=== PATIENT | female | born 1950 | race Caucasian/White ===

== ENCOUNTER 2019-11-06 07:03 | Outpatient (CLI) | payer MEDICARE, SELFPAY | END 2019-11-06 07:04 | disposition home or self-care (01) | PROVIDERS: PCP Internal Medicine; Visit Provider Internal Medicine | DX: E03.9 Hypothyroidism, unspecified (principal) | CPT/HCPCS: 36415; 84443 ==

== ENCOUNTER 2020-01-05 15:05 | Outpatient (CLI) | payer MEDICARE, SELFPAY ==
--- NOTE | ~2020-01-05 | XR_ITS ---
EXAMINATION: XR chest 2V DATE: 01/05/2020 15:38 INDICATION: Cough TECHNIQUE: PA and lateral views of the chest are obtained. COMPARISON: None available FINDINGS: The lungs are free of acute opacities. There is no pleural effusion or pneumothorax. The ca rdiomediastinal silhouette is normal. There is mild thoracic spondylosis. Surgical clips in the right upper quadrant are likely from prior cholecystectomy. IMPRESSION: 1. No acute cardiopulmonary abnormality. Reviewed, dictated and finalized at location A.
== END 2020-01-05 15:06 | disposition home or self-care (01) ==
PROVIDERS: PCP Internal Medicine; Visit Provider Internal Medicine
DX: R05 Cough (principal)
CPT/HCPCS: 71046

== ENCOUNTER 2020-02-04 08:33 | Outpatient (CLI) | payer MEDICARE, SELFPAY | END 2020-02-04 08:34 | disposition home or self-care (01) | PROVIDERS: PCP Internal Medicine; Visit Provider Internal Medicine | DX: E03.9 Hypothyroidism, unspecified (principal) | CPT/HCPCS: 36415; 84443 ==

== ENCOUNTER 2020-02-05 16:02 | Outpatient (CLI) | payer MEDICARE, SELFPAY ==
[2020-02-10 13:36] LABS: SS-A <1.0; SS-B <1.0
== END 2020-02-05 16:03 | disposition home or self-care (01) ==
PROVIDERS: PCP Internal Medicine; Visit Provider Internal Medicine
DX: R68.2 Dry mouth, unspecified (principal)
CPT/HCPCS: 36415; 86038; 86235

== ENCOUNTER 2020-03-08 15:49 | Outpatient (CLI) | payer MEDICARE, SELFPAY ==
--- NOTE | ~2020-03-08 | MM_ITS ---
EXAMINATION: MM screening mary BI w melanie HISTORY: Screening mammogram TECHNIQUE: Craniocaudal and mediolateral oblique 3-D tomosynthesis images were obtained and synthetic 2-D images were generated. CAD analysis was submitted and interpreted. COMPARISON: Comparison to multiple prior studies sequentially, with oldest reviewed study dated 11/26. BREAST PARENCHYMAL COMPOSITION: There are scattered areas of fibroglandular density. FINDINGS: Stable benign-appearing bilateral breast masses. There is no evidence of suspicious mass, c alcification, or architectural distortion to suggest malignancy in either breast. There has been no s uspicious interval change. IMPRESSION: 1. No mammographic evidence of malignancy. 2. Recommend routine screening mammography in one year. BI-RADS Category 2: Benign finding(s). Reviewed, dictated and finalized at location A.
== END 2020-03-08 15:50 | disposition home or self-care (01) ==
PROVIDERS: PCP Internal Medicine; Visit Provider Nurse Practitioner
DX: Z12.31 Encounter for screening mammogram for malignant neoplasm of breast (principal)
CPT/HCPCS: 77063; 77067

== ENCOUNTER 2020-03-17 15:23 | Outpatient (CLI) | payer MEDICARE, SELFPAY | END 2020-03-17 15:24 | disposition home or self-care (01) | LOC: ANHLAB 15:26 | PROVIDERS: PCP Internal Medicine; Visit Provider Internal Medicine | DX: E03.9 Hypothyroidism, unspecified (principal) | CPT/HCPCS: 36415; 84443 ==

== ENCOUNTER 2020-09-12 08:21 | Outpatient (CLI) | payer MEDICARE, SELFPAY ==
[2020-09-12 09:01] LABS: Hemoglobin A1C 5.2 % (<5.7)
[2020-09-12 09:04] LABS: Alanine Aminotransferase 17 U/L (4-35); Albumin Level 3.7 g/dL (3.5-5.1); Alkaline Phosphatase 82 U/L (38-126); Anion Gap 5 mmol/L (8-16); Aspartate Amino Transferase 24 U/L (14-36); Bilirubin,Total 0.7 mg/dL (0.2-1.3); Blood Urea Nitrogen 15 mg/dL (7-17); Calcium 9.1 mg/dL (8.4-10.2); Carbon Dioxide 29 mmol/L (22-30); Chloride 105 mmol/L (98-107); Estimated Glomerular Filt Rate > 60; Glucose 106 mg/dL (65-105); Potassium 3.8 mmol/L (3.4-5.0); Sodium 139 mmol/L (137-145)
[2020-09-12 09:18] LABS: Add Urine Microscopic? YES; Appearance Urine Clear (Clear); Bilirubin Urine Negative (Negative); Blood Urine Negative (Negative); Color Urine Yellow (Yellow); Glucose Urine UA Negative (Negative); Ketones Urine Negative (Negative); Leukocyte Esterase Ur Negative LEU/UL (NEGATIVE); Mucus Urine Heavy /lpf; Nitrate Urine Negative (Negative); Protein Urine Negative (Negative); RBC Urine 0-2 /hpf (0-2); Specific Grav Ur 1.019 (1.001-1.035); Squamous Epithelial Cell Urine Rare /hpf (Few); Urobilinogen Urine Negative mg/dL (<2.0); WBC Urine 0-3 /hpf (0-3)
[2020-09-13 17:11] LABS: Cholesterol 169 mg/dL (0-200); HDL Direct 48 mg/dL; Triglycerides 112 mg/dL (<150)
[2020-09-13 17:16] LABS: LDL Cholesterol Direct 81 mg/dL
== END 2020-09-12 08:22 | disposition home or self-care (01) ==
PROVIDERS: PCP Internal Medicine; Visit Provider Internal Medicine
DX: E78.5 Hyperlipidemia, unspecified (principal); I10 Essential (primary) hypertension; R73.01 Impaired fasting glucose
CPT/HCPCS: 36415; 80053; 80061; 81001; 83036; 84443

== ENCOUNTER 2021-01-23 09:12 | Outpatient (CLI) | payer MEDICARE, SELFPAY ==
[2021-01-23 10:01] LABS: CRP 0.5 mg/dL (<1.0); Uric Acid 3.8 mg/dL (2.5-7.5)
[2021-01-23 10:02] LABS: Rheumatoid Factor < 8.6 IU/ML (<12)
[2021-01-23 10:15] LABS: Erythrocyte Sedimentation Rate 28 mm/hr (0-20)
[2021-01-27 13:43] LABS: HLA B27 Negative (Negative)
== END 2021-01-23 09:13 | disposition home or self-care (01) ==
PROVIDERS: PCP Internal Medicine; Visit Provider Podiatrist Foot & Ankle Surgery
DX: M54.6 Pain in thoracic spine (principal); M13.0 Polyarthritis, unspecified; Z79.899 Other long term (current) drug therapy
CPT/HCPCS: 36415; 84550; 85652; 86038; 86140; 86430; 86812

== ENCOUNTER → 2021-03-10 10:16 | Outpatient (CLI) | payer MEDICARE, SELFPAY ==
--- NOTE | ~2021-03-10 | DEXA_ITS ---
Bone Density Report Name: Terry Bowden Age: 70 Sex: Female Ethnicity: White Date of : 1950 Indication: osteopenia; monitoring treatment; height loss; postmenopausal Referring Provider: Lesly*Stephania Rizzo Study: Bone densitometry was performed. Exam Date: March 10, 2021 Accession number: [id number] Bone Density: Region BMD T-score Z-score Classification AP Spine (L1, L2) 0.723 -2.3 -0.2 Osteopenia Femoral Neck (Left) 0.692 -1.4 0.6 Osteopenia Total Hip (Left) 0.878 -0.5 1.1 Normal Femoral Neck (Right) 0.833 -0.1 1.8 Normal Total Hip (Right) 0.886 -0.5 1.2 Normal Total Hip Mean 0.882 -0.5 1.2 Normal World Health Organization criteria for BMD impression classify patients as: Normal (T-score at or above -1.0), Osteopenia (T-score between -1.0 and -2.5), or Osteoporosis (T-score at or below -2.5). 10-year Fracture Risk: FRAX not reported because: Treated for osteoporosis Previous Exams: Region Exam Age BMD T-score BMD Change BMD Change Date g/cm2 vs Baseline vs Previous AP Spine(L1, L2) 03/10/2021 70 0.723 -2.3 -0.011 -0.008 12/24/2018 68 0.731 -2.3 -0.003 -0.021 12/02/2015 65 0.752 -2.1 0.018 0.018 11/19/2013 63 0.734 -2.2 Total Hip(Left) 03/10/2021 70 0.878 -0.5 -0.064 -0.010 12/24/2018 68 0.888 -0.4 -0.054 -0.061* 12/02/2015 65 0.949 0.1 0.007 0.007 11/19/2013 63 0.942 0.0 Total Hip(Right) 03/10/2021 70 0.886 -0.5 -0.048 0.013 12/24/2018 68 0.873 -0.6 -0.060 -0.070* 12/02/2015 65 0.944 0.0 0.010 0.010 11/19/2013 63 0.934 -0.1 *Denotes significance at 95% confidence level, LSC for AP Spine = 0.022 g/cm2, LSC for Total Hip = 0.027 g/cm2 Clinical Information Provided by Patient: Is being treated for osteoporosis Has used the following medications: Evista (i.e. raloxifene), Fosamax (i.e. alendronate), Vitamin D, Calcium, MTV Patient maximum height was 62 Menopause Age: 51 No regular weight bearing exercise Drinks caffeinated beverages Onset of menses at age 11 Number of children 1 Impression: The patient has low bone mass, based on the Total Spine T-score. No significant bone loss was observed. Discussion: PATIENT UNDER TREATMENT WITH NO SIGNIFICANT BMD LOSS SINCE LAST EXAM. In an untreated patient, BMD typical
--- NOTE | ~2021-03-10 | MM_ITS ---
EXAMINATION: MM screening mary BI w melanie HISTORY: Screening mammogram TECHNIQUE: Craniocaudal and mediolateral oblique 3-D tomosynthesis images were obtained and synthetic 2-D images were generated. CAD analysis was submitted and interpreted. COMPARISON: 03/18/2020, 12/24/2018, 12/16/2017 bilateral digital screening mammogram examinations BREAST PARENCHYMAL COMPOSITION: There are scattered areas of fibroglandular density. FINDINGS: Scattered bilateral benign calcifications. Stable occasional bilateral low-density circumsc ribed opacities. There is no evidence of suspicious mass, calcification, or architectural distortion to suggest malignancy in either breast. There has been no suspicious interval change. IMPRESSION: 1. No mammographic evidence of malignancy. 2. Recommend routine screening mammography in one year. BI-RADS Category 2: Benign finding(s). Reviewed, dictated and finalized at location A.
== END ==
PROVIDERS: PCP Internal Medicine; Visit Provider Nurse Practitioner
DX: Z12.31 Encounter for screening mammogram for malignant neoplasm of breast (principal); M81.0 Age-related osteoporosis without current pathological fracture; M85.88 Other specified disorders of bone density and structure, other site; M85.852 Other specified disorders of bone density and structure, left thigh
CPT/HCPCS: 77063; 77067; 77080

== ENCOUNTER → 2021-04-18 10:40 | Outpatient (CLI) | payer MEDICARE, SELFPAY ==
--- NOTE | ~2021-04-18 | MR_ITS ---
EXAMINATION: MR ankle LT wo con DATE: 04/18/2021 11:58 INDICATION: Left ankle pain and swelling. Posterior tibial tendinopathy. TECHNIQUE: Magnetic resonance imaging (MRI) of the left ankle was performed without intravenous contr ast. Sequences included sagittal, coronal, and axial proton-density weighted fast spin echo without a nd with fat saturation. COMPARISON: None. FINDINGS: Medial ankle ligaments: Deep and superficial deltoid ligaments as well as the spring ligament are normal. Lateral ankle ligaments: The anterior and posterior inferior tibiofibular ligaments are normal. The anterior talofibular, calc aneofibular and posterior talofibular ligaments are normal. Tendons: Achilles tendon is normal. The peroneus longus and brevis tendons are normal. The tibialis anterior a nd extensor hallucis longus and extensor digitorum longus tendons are normal. The flexor digitorum lo ngus and flexor hallucis longus tendons are normal. Mild tibialis posterior tenosynovitis with mild t ibialis posterior tendinopathy and longitudinal split tear which begins at the caudal aspect of the r etromalleolar groove and extends to the insertion at a type II os peroneus. Plantar fascia: Thickening of the proximal plantar aponeurosis with small plantar calcaneal spur at its calcaneal [place] consistent with chronic enthesopathy. No surrounding soft tissue or marrow edema to suggest acute plantar fasciitis. Bones/other: Bone alignment is normal. No fracture or pathologic marrow replacing process. There is moderate osteo arthritis at the third and fourth tarsal metatarsal joints with associated subarticular cystic change and edema. Additional mild to moderate osteoarthritis at the naviculocuneiform articulation with sma ll focus of navicular subarticular edema along its articulation with the medial cuneiform. Additional mild osteoarthritis with subarticular edema along both sides of the decreased between the medial and mid cuneiforms. Lisfranc ligament complex is normal. Fluid: Physiologic amount fluid in the joint spaces. Ganglion cyst measuring 2.3 x 1.6 x 0.8 cm arising from the talonavicular joint and extending proximally along the dorsal neck of the talus. IMPRESSION: 1. Tibialis posterior tenosynovitis with mild tendinopathy and longitudinal split tearing of the tibi cortez posterior tendon. 2. 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 Reviewed, dictated and finalized at location A. IMPRESSION: 1. Tibialis posterior tenosynovitis with mild tendinopathy and longitudinal spl it tearing of the tibialis posterior tendon. 2. 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
== END ==
PROVIDERS: PCP Internal Medicine; Visit Provider Podiatrist Foot & Ankle Surgery
DX: M76.822 Posterior tibial tendinitis, left leg (principal)
CPT/HCPCS: 73721

== ENCOUNTER 2021-05-23 15:56 | Outpatient (CLI) | payer MEDICARE, SELFPAY ==
[2021-05-23 16:57] LABS: Basophils Absolute Auto 0.1 K/mm3 (0.0-0.1); Basophils Percent Auto 0.6 % (0.2-1.2); Eosinophils Absolute Auto 0.2 K/mm3 (0-0.3); Eosinophils Percent Auto 2.4 % (0-4.4); Hematocrit 42.3 % (37.0-47.0); Hemoglobin 13.6 g/dL (12.0-15.0); Immature Granulocyte Absolute 0.01 K/mm3 (0.00-0.031); Immature Granulocyte Percent A 0.1 % (0-0.5); Lymphocytes Absolute Auto 2.18 K/mm3 (0.9-3.2); Lymphocytes Percent Auto 27.3 % (18.3-44.2); Mean Corpuscular HGB Conc 32.2 g/dl (32-36); Mean Corpuscular Hemoglobin 30.4 pg (26-34); Mean Corpuscular Volume 94.4 fl (80-100); Mean Platelet Volume 10.3 fl (7.4-10.4); Monocytes Absolute Auto 0.7 K/mm3 (0.1-0.6); Monocytes Percent Auto 8.8 % (2.6-8.5); Neutrophils Absolute Auto 4.9 K/mm3 (1.3-6.7); Neutrophils Percent Auto 60.8 % (45.5-73.1); Platelet Count Result 266 k/mm3 (150-375); Red Blood Count 4.48 M/mm3 (4.2-5.4); Red Cell Distribution Width 13.4 % (11.5-14.5)
[2021-05-23 17:08] LABS: Alanine Aminotransferase 39 U/L (4-35); Albumin Level 4.2 g/dL (3.5-5.1); Alkaline Phosphatase 96 U/L (38-126); Anion Gap 5 mmol/L (8-16); Aspartate Amino Transferase 30 U/L (14-36); Bilirubin,Total 0.8 mg/dL (0.2-1.3); Blood Urea Nitrogen 19 mg/dL (7-17); Calcium 9.1 mg/dL (8.4-10.2); Carbon Dioxide 28 mmol/L (22-30); Chloride 108 mmol/L (98-107); Creatine Kinase 52 U/L (30-135); Estimated Glomerular Filt Rate > 60; Glucose 102 mg/dL (65-110); Potassium 3.9 mmol/L (3.4-5.0); Sodium 141 mmol/L (137-145)
[2021-05-24 12:33] LABS: Erythrocyte Sedimentation Rate 24 mm/hr (0-20)
[2021-05-26 15:40] LABS: JO 1 Antibody <1.0
[2021-05-27 22:49] LABS: Aldolase 5.2 U/L (<=8.1)
== END 2021-05-23 15:57 | disposition home or self-care (01) ==
PROVIDERS: PCP Internal Medicine; Visit Provider Internal Medicine
DX: M79.603 Pain in arm, unspecified (principal); M79.643 Pain in unspecified hand
CPT/HCPCS: 36415; 80053; 82085; 82550; 85025; 85652; 86038; 86235

== ENCOUNTER 2021-06-27 09:39 | Outpatient (CLI) | payer MEDICARE, SELFPAY ==
[2021-06-27 10:16] LABS: Rheumatoid Factor < 8.6 IU/ML (<12)
== END 2021-06-27 09:40 | disposition home or self-care (01) ==
LOC: ANHLAB 09:42
PROVIDERS: PCP Internal Medicine; Visit Provider Internal Medicine
DX: M25.532 Pain in left wrist (principal); E03.9 Hypothyroidism, unspecified
CPT/HCPCS: 36415; 84443; 86430

== ENCOUNTER 2021-10-16 07:08 | Outpatient (CLI) | payer MEDICARE, SELFPAY ==
[2021-10-16 07:36] LABS: Basophils Percent Auto 0.3 % (0.2-1.2); Eosinophils Absolute Auto 0.1 K/mm3 (0-0.3); Hematocrit 41.8 % (37.0-47.0); Hemoglobin 13.7 g/dL (12.0-15.0); Immature Granulocyte Absolute 0.04 K/mm3 (0.00-0.031); Immature Granulocyte Percent A 0.4 % (0-0.5); Lymphocytes Percent Auto 25.8 % (18.3-44.2); Mean Corpuscular HGB Conc 32.8 g/dl (32-36); Mean Corpuscular Hemoglobin 31.4 pg (26-34); Mean Corpuscular Volume 95.7 fl (80-100); Mean Platelet Volume 10.3 fl (7.4-10.4); Monocytes Absolute Auto 0.9 K/mm3 (0.1-0.6); Monocytes Percent Auto 9.6 % (2.6-8.5); Neutrophils Absolute Auto 5.6 K/mm3 (1.3-6.7); Neutrophils Percent Auto 62.9 % (45.5-73.1); Platelet Count Result 247 k/mm3 (150-375); Red Blood Count 4.37 M/mm3 (4.2-5.4); Red Cell Distribution Width 13.2 % (11.5-14.5); White Blood Count 8.9 K/mm3 (4.5-10.0)
[2021-10-16 07:47] LABS: Alanine Aminotransferase 19 U/L (4-35); Albumin Level 3.9 g/dL (3.5-5.1); Alkaline Phosphatase 77 U/L (38-126); Anion Gap 7 mmol/L (8-16); Aspartate Amino Transferase 19 U/L (14-36); Bilirubin,Total 0.6 mg/dL (0.2-1.3); Blood Urea Nitrogen 19 mg/dL (7-17); Calcium 9.1 mg/dL (8.4-10.2); Carbon Dioxide 27 mmol/L (22-30); Chloride 106 mmol/L (98-107); Cholesterol 204 mg/dL (0-200); Estimated Glomerular Filt Rate > 60; Glucose 125 mg/dL (65-110); HDL Direct 57 mg/dL; Potassium 3.7 mmol/L (3.4-5.0); Sodium 140 mmol/L (137-145); Triglycerides 88 mg/dL (<150)
[2021-10-16 07:57] LABS: Hemoglobin A1C 5.7 % (<5.7)
[2021-10-16 07:58] LABS: LDL Cholesterol Direct 92 mg/dL
[2021-10-16 08:18] LABS: Add Urine Microscopic? YES; Appearance Urine Clear (Clear); Bilirubin Urine Negative (Negative); Blood Urine Negative (Negative); Color Urine Yellow (Yellow); Glucose Urine UA Negative (Negative); Ketones Urine Negative (Negative); Leukocyte Esterase Ur Negative LEU/UL (NEGATIVE); Mucus Urine Few /lpf; Nitrate Urine Negative (Negative); Protein Urine Negative (Negative); Squamous Epithelial Cell Urine Rare /hpf (Few); Urobilinogen Urine Negative mg/dL (<2.0); WBC Urine 0-3 /hpf (0-3)
== END 2021-10-16 07:09 | disposition home or self-care (01) ==
PROVIDERS: PCP Internal Medicine; Visit Provider Internal Medicine
DX: E03.9 Hypothyroidism, unspecified (principal); R73.01 Impaired fasting glucose; K55.20 Angiodysplasia of colon without hemorrhage
CPT/HCPCS: 36415; 80053; 80061; 81001; 83036; 84443; 85025

== ENCOUNTER 2021-11-30 06:59 | Outpatient (CLI) | payer MEDICARE, SELFPAY ==
[2021-11-30 07:41] LABS: Add Urine Microscopic? YES; Appearance Urine Clear (Clear); Bilirubin Urine Negative (Negative); Blood Urine Negative (Negative); Color Urine Yellow (Yellow); Glucose Urine UA Negative (Negative); Ketones Urine Negative (Negative); Leukocyte Esterase Ur Negative LEU/UL (Negative); Mucus Urine Rare /lpf; Nitrate Urine Negative (Negative); Protein Urine Negative (Negative); RBC Urine 0-2 /hpf (0-2); Specific Grav Ur 1.016 (1.001-1.035); Urobilinogen Urine Negative mg/dL (<2.0)
[2021-11-30 07:45] LABS: Alanine Aminotransferase 23 U/L (4-35); Albumin Level 3.9 g/dL (3.5-5.1); Alkaline Phosphatase 89 U/L (38-126); Anion Gap 3 mmol/L (8-16); Aspartate Amino Transferase 26 U/L (14-36); Bilirubin,Total 1.1 mg/dL (0.2-1.3); Blood Urea Nitrogen 16 mg/dL (7-17); Calcium 8.7 mg/dL (8.4-10.2); Carbon Dioxide 30 mmol/L (22-30); Chloride 107 mmol/L (98-107); Cholesterol 191 mg/dL (0-200); Estimated Glomerular Filt Rate > 60; Glucose 128 mg/dL (65-110); HDL Direct 47 mg/dL; Sodium 140 mmol/L (137-145); Triglycerides 106 mg/dL (<150)
[2021-11-30 07:57] LABS: LDL Cholesterol Direct 89 mg/dL
[2021-11-30 08:15] LABS: Thyroid Stimulating Hormone 0.282 uIU/mL (0.465-4.680)
== END 2021-11-30 07:00 | disposition home or self-care (01) ==
LOC: ANHLAB 07:05
PROVIDERS: PCP Internal Medicine; Visit Provider Internal Medicine
DX: E03.9 Hypothyroidism, unspecified (principal); R31.29 Other microscopic hematuria; E78.5 Hyperlipidemia, unspecified
CPT/HCPCS: 36415; 80053; 80061; 81001; 84443

== ENCOUNTER 2022-02-06 07:30 | Outpatient (CLI) | payer MEDICARE, SELFPAY ==
[2022-02-06 08:06] LABS: Anion Gap 6 mmol/L (8-16); Blood Urea Nitrogen 12 mg/dL (7-17); Calcium 9.1 mg/dL (8.4-10.2); Carbon Dioxide 26 mmol/L (22-30); Chloride 108 mmol/L (98-107); Estimated Glomerular Filt Rate > 60; Glucose 115 mg/dL (65-110); Potassium 3.8 mmol/L (3.4-5.0); Sodium 140 mmol/L (137-145)
[2022-02-06 08:08] LABS: Hemoglobin A1C 5.4 % (<5.7)
[2022-02-06 08:37] LABS: Thyroid Stimulating Hormone 0.044 uIU/mL (0.465-4.680)
[2022-02-10 07:54] LABS: Total Protein/Creatinine Ratio 101 mg/g creat (21-161)
[2022-02-10 14:04] LABS: Albumin 3.5 g/dL (3.8-4.8); Alpha 1 Globulin 0.3 g/dL (0.2-0.3); Alpha 2 Globulin 0.7 g/dL (0.5-0.9); Beta 1 Globulin 0.4 g/dL (0.4-0.6); Gamma Globulin 0.9 g/dL (0.8-1.7); Protein, Total 6.3 g/dL (6.1-8.1)
== END 2022-02-06 07:31 | disposition home or self-care (01) ==
LOC: ANHLAB 07:34
PROVIDERS: PCP Internal Medicine; Visit Provider Internal Medicine
DX: E03.9 Hypothyroidism, unspecified (principal); R73.01 Impaired fasting glucose; Z13.0 Encounter for screening for diseases of the blood and blood-forming organs and certain disorders involving the immune mechanism
CPT/HCPCS: 36415; 80048; 82570; 83036; 84155; 84156; 84165; 84166; 84443

== ENCOUNTER 2022-04-30 07:13 | Outpatient (CLI) | payer MEDICARE, SELFPAY ==
[2022-04-30 08:06] LABS: Alanine Aminotransferase 60 U/L (6-35); Albumin Level 3.9 g/dL (3.5-5.1); Alkaline Phosphatase 111 U/L (38-126); Anion Gap 6 mmol/L (8-16); Aspartate Amino Transferase 44 U/L (14-36); Bilirubin,Total 0.7 mg/dL (0.2-1.3); Blood Urea Nitrogen 16 mg/dL (7-17); Calcium 8.5 mg/dL (8.4-10.2); Carbon Dioxide 29 mmol/L (22-30); Chloride 106 mmol/L (98-107); Cholesterol 189 mg/dL (0-200); Estimated Glomerular Filt Rate > 60; Glucose 114 mg/dL (65-110); HDL Direct 43 mg/dL; Potassium 3.6 mmol/L (3.4-5.0); Sodium 141 mmol/L (137-145); Triglycerides 144 mg/dL (<150)
[2022-04-30 08:17] LABS: LDL Cholesterol Direct 81 mg/dL
[2022-04-30 08:35] LABS: Thyroid Stimulating Hormone 0.976 uIU/mL (0.465-4.680)
== END 2022-04-30 07:14 | disposition home or self-care (01) ==
LOC: ANHLAB 07:16
PROVIDERS: PCP Internal Medicine; Visit Provider Internal Medicine
DX: I10 Essential (primary) hypertension (principal); E03.9 Hypothyroidism, unspecified
CPT/HCPCS: 36415; 80053; 80061; 84443

== ENCOUNTER → 2022-05-17 12:10 | Outpatient (CLI) | payer MEDICARE, SELFPAY ==
--- NOTE | ~2022-05-17 | MM_ITS ---
EXAMINATION: MM screening mary BI w melanie HISTORY: Screening mammogram TECHNIQUE: Craniocaudal and mediolateral oblique 3-D tomosynthesis images were obtained and synthetic 2-D images were generated. CAD analysis was submitted and interpreted. COMPARISON: 03/10/2021, 03/08/2020, 12/24/2018 bilateral screening mammogram examinations BREAST PARENCHYMAL COMPOSITION: There are scattered areas of fibroglandular density. FINDINGS: Scattered bilateral benign calcifications. There is no evidence of suspicious mass, calcifi cation, or architectural distortion to suggest malignancy in either breast. There has been no suspici ous interval change. IMPRESSION: 1. No mammographic evidence of malignancy. 2. Recommend routine screening mammography in one year. BI-RADS Category 2: Benign finding(s). Reviewed, dictated and finalized at location A.
== END ==
PROVIDERS: PCP Internal Medicine; Visit Provider Internal Medicine
DX: Z12.31 Encounter for screening mammogram for malignant neoplasm of breast (principal)
CPT/HCPCS: 77063; 77067

== ENCOUNTER 2022-06-01 08:18 | Outpatient (CLI) | payer MEDICARE, SELFPAY ==
[2022-06-01 09:27] LABS: Alanine Aminotransferase 20 U/L (6-35); Albumin Level 3.8 g/dL (3.5-5.1); Alkaline Phosphatase 107 U/L (38-126); Aspartate Amino Transferase 30 U/L (14-36); Bilirubin,Total 0.9 mg/dL (0.2-1.3)
== END 2022-06-01 08:19 | disposition home or self-care (01) ==
PROVIDERS: PCP Internal Medicine; Visit Provider Internal Medicine
DX: E78.5 Hyperlipidemia, unspecified (principal)
CPT/HCPCS: 36415; 80076

== ENCOUNTER 2022-07-16 07:27 | Outpatient (CLI) | payer MEDICARE, SELFPAY ==
[2022-07-16 08:11] LABS: Basophils Percent Auto 0.5 % (0.2-1.2); Eosinophils Absolute Auto 0.2 K/mm3 (0-0.3); Eosinophils Percent Auto 2.7 % (0-4.4); Hematocrit 40.9 % (37.0-47.0); Hemoglobin 13.1 g/dL (12.0-15.0); Immature Granulocyte Absolute 0.02 K/mm3 (0.00-0.031); Immature Granulocyte Percent A 0.3 % (0-0.5); Lymphocytes Absolute Auto 1.71 K/mm3 (0.9-3.2); Lymphocytes Percent Auto 23.3 % (18.3-44.2); Mean Corpuscular Volume 96.9 fl (80-100); Mean Platelet Volume 10.6 fl (7.4-10.4); Monocytes Absolute Auto 0.6 K/mm3 (0.1-0.6); Monocytes Percent Auto 8.5 % (2.6-8.5); Neutrophils Absolute Auto 4.7 K/mm3 (1.3-6.7); Neutrophils Percent Auto 64.7 % (45.5-73.1); Platelet Count Result 255 k/mm3 (150-375); Red Blood Count 4.22 M/mm3 (4.2-5.4); Red Cell Distribution Width 13.6 % (11.5-14.5); White Blood Count 7.3 K/mm3 (4.5-10.0)
[2022-07-16 08:21] LABS: Alanine Aminotransferase 31 U/L (6-35); Alkaline Phosphatase 105 U/L (38-126); Anion Gap 11 mmol/L (8-16); Aspartate Amino Transferase 32 U/L (14-36); Bilirubin,Total 0.7 mg/dL (0.2-1.3); Blood Urea Nitrogen 17 mg/dL (7-17); Calcium 8.8 mg/dL (8.4-10.2); Carbon Dioxide 28 mmol/L (22-30); Chloride 103 mmol/L (98-107); Estimated Glomerular Filt Rate > 60; Glucose 127 mg/dL (65-110); Potassium 3.7 mmol/L (3.4-5.0); Sodium 142 mmol/L (137-145)
== END 2022-07-16 07:28 | disposition home or self-care (01) ==
LOC: ANHLAB 07:34
PROVIDERS: PCP Internal Medicine
DX: Z01.818 Encounter for other preprocedural examination (principal)
CPT/HCPCS: 36415; 80053; 85025

== ENCOUNTER 2022-07-20 14:49 | Outpatient (CLI) | payer MEDICARE, SELFPAY ==
[2022-07-20 15:29] LABS: Partial Thromboplastin Time 27.6 SECONDS (22.3-36.8); Prothrombin Time 13.1 Seconds (11.1-14.7)
== END 2022-07-20 14:50 | disposition home or self-care (01) ==
LOC: ANHLAB 14:50
PROVIDERS: PCP Internal Medicine; Visit Provider Internal Medicine
DX: S80.10XA Contusion of unspecified lower leg, initial encounter (principal)
CPT/HCPCS: 36415; 85610; 85730

== ENCOUNTER 2023-01-16 07:03 | Outpatient (CLI) | payer MEDICARE, SELFPAY ==
[2023-01-16 07:51] LABS: Alanine Aminotransferase 24 U/L (6-35); Alkaline Phosphatase 112 U/L (38-126); Anion Gap 6 mmol/L (8-16); Aspartate Amino Transferase 26 U/L (14-36); Blood Urea Nitrogen 17 mg/dL (7-17); Calcium 8.9 mg/dL (8.4-10.2); Carbon Dioxide 29 mmol/L (22-30); Chloride 104 mmol/L (98-107); Cholesterol 197 mg/dL (0-200); Estimated Glomerular Filt Rate > 60; Glucose 127 mg/dL (65-110); HDL Direct 43 mg/dL; Phosphorus 3.8 mg/dL (2.5-4.5); Potassium 3.8 mmol/L (3.4-5.0); Sodium 139 mmol/L (137-145); Triglycerides 113 mg/dL (<150)
[2023-01-16 07:52] LABS: Appearance Urine Clear (Clear); Bacteria Urine None Seen /hpf; Bilirubin Urine Negative (Negative); Blood Urine Negative (Negative); Color Urine Yellow (Yellow); Glucose Urine UA Negative (Negative); Ketones Urine Negative (Negative); Leukocyte Esterase Ur Negative LEU/UL (NEGATIVE); Mucus Urine Present /lpf; Need Manual Microscopic Reviewed; Nitrate Urine Negative (Negative); Protein Urine Trace mg/dL (Negative); RBC Urine 0-2 /hpf (0-2); Specific Grav Ur 1.021 (1.001-1.035); Squamous Epithelial Cell Urine None seen /hpf (Few); WBC Urine 0-5 /hpf (0-3)
[2023-01-16 07:54] LABS: Hemoglobin A1C 5.6 % (<5.7)
[2023-01-16 08:07] LABS: LDL Cholesterol Direct 98 mg/dL
[2023-01-16 08:14] LABS: Add Urine Microscopic? YES
[2023-01-16 08:20] LABS: Thyroid Stimulating Hormone 0.583 uIU/mL (0.465-4.680)
== END 2023-01-16 07:04 | disposition home or self-care (01) ==
PROVIDERS: PCP Internal Medicine; Visit Provider Internal Medicine
DX: R73.01 Impaired fasting glucose (principal); E03.9 Hypothyroidism, unspecified; I10 Essential (primary) hypertension; M85.80 Other specified disorders of bone density and structure, unspecified site
CPT/HCPCS: 36415; 80061; 80069; 80076; 81001; 82306; 83036; 84443

== ENCOUNTER 2023-03-06 07:05 | Outpatient (CLI) | payer MEDICARE, SELFPAY ==
[2023-03-06 07:42] LABS: Alanine Aminotransferase 22 U/L (6-35); Albumin Level 3.8 g/dL (3.5-5.1); Alkaline Phosphatase 103 U/L (38-126); Anion Gap 4 mmol/L (8-16); Aspartate Amino Transferase 24 U/L (14-36); Bilirubin,Total 0.7 mg/dL (0.2-1.3); Blood Urea Nitrogen 17 mg/dL (7-17); Calcium 8.7 mg/dL (8.4-10.2); Carbon Dioxide 27 mmol/L (22-30); Chloride 105 mmol/L (98-107); Cholesterol 141 mg/dL (0-200); Estimated Glomerular Filt Rate > 60; Glucose 117 mg/dL (65-110); HDL Direct 50 mg/dL; Potassium 3.8 mmol/L (3.4-5.0); Sodium 136 mmol/L (137-145); Triglycerides 84 mg/dL (<150)
[2023-03-06 07:47] LABS: Creatinine Urine 101.1 mg/dL
[2023-03-06 07:50] LABS: Microalbumin Urine Random 29.3 mg/L (0-16.7)
[2023-03-06 07:52] LABS: LDL Cholesterol Direct 60 mg/dL
== END 2023-03-06 07:06 | disposition home or self-care (01) ==
PROVIDERS: PCP Internal Medicine; Visit Provider Internal Medicine
DX: E78.5 Hyperlipidemia, unspecified (principal); I10 Essential (primary) hypertension
CPT/HCPCS: 36415; 80053; 80061; 82043

== ENCOUNTER → 2023-03-27 11:02 | Outpatient (CLI) | payer MEDICARE, SELFPAY ==
--- NOTE | ~2023-03-27 | DEXA_ITS ---
Corrected Report See Bolded Text 04/16/2023 [facility] Bone Density Report Name: RICARDO MORRIS Age: 72 Sex: Female Ethnicity: White Date of : 1950 Indication: osteopenia; height loss; Referring Provider: SAVANNA MCNEIL Study: Bone densitometry was performed. Exam Date: March 27, 2023 Accession number: [id number] Bone Density: Region BMD T-score Z-score Classification AP Spine (L1, L2) 0.768 -1.9 0.3 Osteopenia Femoral Neck (Left) 0.685 -1.5 0.6 Osteopenia Total Hip (Left) 0.810 -1.1 0.7 Osteopenia Femoral Neck (Right) 0.772 -0.7 1.4 Normal Total Hip (Right) 0.876 -0.5 1.2 Normal Total Hip Mean 0.843 -0.8 1.0 Normal World Health Organization criteria for BMD impression classify patients as: Normal (T-score at or above -1.0), Osteopenia (T-score between -1.0 and -2.5), or Osteoporosis (T-score at or below -2.5). 10-year Fracture Risk(1): Major Osteoporotic Fracture 9.8% Hip Fracture 1.8% Reported Risk Factors: [place] (), Neck BMD=0.685, BMI=37.9 (1) FRAX(R) Version 3.08. Fracture probability calculated for an untreated patient. Fracture probability may be lower if the patient has received treatment. Previous Exams: Region Exam Age BMD T-score BMD Change BMD Change Date g/cm2 vs Baseline vs Previous AP Spine(L1, L2) 03/27/2023 72 0.768 -1.9 0.034* 0.045 03/10/2021 70 0.723 -2.3 -0.011 -0.008 12/24/2018 68 0.731 -2.3 -0.003 -0.021 12/02/2015 65 0.752 -2.1 0.018 0.018 11/19/2013 63 0.734 -2.2 Total Hip(Left) 03/27/2023 72 0.810 -1.1 -0.132 -0.068 03/10/2021 70 0.878 -0.5 -0.064 -0.010 12/24/2018 68 0.888 -0.4 -0.054 -0.061* 12/02/2015 65 0.949 0.1 0.007 0.007 11/19/2013 63 0.942 0.0 Total Hip(Right) 03/27/2023 72 0.876 -0.5 -0.058 -0.010 03/10/2021 70 0.886 -0.5 -0.048 0.013 12/24/2018 68 0.873 -0.6 -0.060 -0.070* 12/02/2015 65 0.944 0.0 0.010 0.010 11/19/2013 63 0.934 -0.1 *Denotes significance at 95% confidence level, LSC for AP Spine = 0.022 g/cm2, LSC for Total Hip = 0.027 g/cm2 Clinical Information Provided by Patient: Has used the following medications: Vitamin D, Calcium, MTV Patient maximum height was 62 Menopause Age: 51 Does not regu
== END ==
PROVIDERS: PCP Internal Medicine; Visit Provider Internal Medicine
DX: M85.88 Other specified disorders of bone density and structure, other site (principal); M85.852 Other specified disorders of bone density and structure, left thigh
CPT/HCPCS: 77080

== ENCOUNTER → 2023-05-20 10:08 | Outpatient (CLI) | payer MEDICARE, SELFPAY ==
--- NOTE | ~2023-05-20 | MM_ITS ---
EXAMINATION: MM screening mary BI w melanie HISTORY: Screening mammogram TECHNIQUE: Craniocaudal and mediolateral oblique 3-D tomosynthesis images were obtained and synthetic 2-D images were generated. CAD analysis was submitted and interpreted. COMPARISON: 05/17/2022, 03/10/2021, 03/08/2020 bilateral screening mammogram examinations BREAST PARENCHYMAL COMPOSITION: There are scattered areas of fibroglandular density. FINDINGS: Scattered bilateral benign calcifications are again noted. Occasional stable low-density ci rcumscribed opacities are noted in each breast. There is no evidence of suspicious mass, calcificatio n, or architectural distortion to suggest malignancy in either breast. There has been no suspicious i nterval change. IMPRESSION: 1. No mammographic evidence of malignancy. 2. Recommend routine screening mammography in one year. BI-RADS Category 2: Benign finding(s). Reviewed, dictated and finalized at location A.
== END ==
PROVIDERS: PCP Internal Medicine; Visit Provider Internal Medicine
DX: Z12.31 Encounter for screening mammogram for malignant neoplasm of breast (principal)
CPT/HCPCS: 77063; 77067

== ENCOUNTER 2023-07-22 07:05 | Outpatient (CLI) | payer MEDICARE, SELFPAY ==
[2023-07-22 08:11] LABS: Hemoglobin A1C 5.5 % (<5.7)
[2023-07-22 08:12] LABS: Alanine Aminotransferase 24 U/L (6-35); Alkaline Phosphatase 93 U/L (38-126); Anion Gap 5 mmol/L (8-16); Aspartate Amino Transferase 25 U/L (14-36); Bilirubin,Total 0.7 mg/dL (0.2-1.3); Blood Urea Nitrogen 15 mg/dL (7-17); Calcium 9.1 mg/dL (8.4-10.2); Carbon Dioxide 29 mmol/L (22-30); Chloride 106 mmol/L (98-107); Cholesterol 167 mg/dL (0-200); Estimated Glomerular Filt Rate > 60; Glucose 111 mg/dL (65-110); HDL Direct 56 mg/dL; Potassium 3.9 mmol/L (3.4-5.0); Sodium 140 mmol/L (137-145); Triglycerides 85 mg/dL (<150)
[2023-07-22 08:23] LABS: LDL Cholesterol Direct 72 mg/dL
[2023-07-22 08:28] LABS: Vitamin D 25 Hydroxy 48.1 ng/mL
== END 2023-07-22 07:06 | disposition home or self-care (01) ==
LOC: ANHLAB 07:06
PROVIDERS: PCP Internal Medicine; Visit Provider Internal Medicine
DX: R73.01 Impaired fasting glucose (principal); E03.9 Hypothyroidism, unspecified; I10 Essential (primary) hypertension; M85.80 Other specified disorders of bone density and structure, unspecified site
CPT/HCPCS: 36415; 80053; 80061; 82306; 83036; 84443

== ENCOUNTER 2023-07-30 08:06 | Outpatient (CLI) | payer MEDICARE, SELFPAY ==
[2023-07-30 09:14] LABS: Basophils Absolute Auto 0.1 K/mm3 (0.0-0.1); Basophils Percent Auto 0.7 % (0.2-1.2); Eosinophils Absolute Auto 0.2 K/mm3 (0-0.3); Eosinophils Percent Auto 2.4 % (0-4.4); Hematocrit 40.9 % (37.0-47.0); Hemoglobin 13.3 g/dL (12.0-15.0); Immature Granulocyte Absolute 0.02 K/mm3 (0.00-0.031); Immature Granulocyte Percent A 0.3 % (0-0.5); Lymphocytes Absolute Auto 1.77 K/mm3 (0.9-3.2); Lymphocytes Percent Auto 23.6 % (18.3-44.2); Mean Corpuscular HGB Conc 32.5 g/dl (32-36); Mean Corpuscular Hemoglobin 30.9 pg (26-34); Mean Corpuscular Volume 95.1 fl (80-100); Mean Platelet Volume 10.6 fl (7.4-10.4); Monocytes Absolute Auto 0.7 K/mm3 (0.1-0.6); Monocytes Percent Auto 9.5 % (2.6-8.5); Neutrophils Absolute Auto 4.8 K/mm3 (1.3-6.7); Neutrophils Percent Auto 63.5 % (45.5-73.1); Platelet Count Result 265 k/mm3 (150-375); Red Cell Distribution Width 13.8 % (11.5-14.5); White Blood Count 7.5 K/mm3 (4.5-10.0)
[2023-07-30 10:30] LABS: Hepatitis C Virus Antibody Negative (Negative)
== END 2023-07-30 08:07 | disposition home or self-care (01) ==
LOC: ANHLAB 08:08
PROVIDERS: PCP Internal Medicine; Visit Provider Internal Medicine
DX: Z11.59 Encounter for screening for other viral diseases (principal); K55.20 Angiodysplasia of colon without hemorrhage
CPT/HCPCS: 36415; 85025; 86803

== ENCOUNTER 2024-02-28 11:18 | Outpatient (CLI) | payer MEDICARE, SELFPAY ==
[2024-02-28 11:53] LABS: Alanine Aminotransferase 17 U/L (6-35); Albumin Level 4.1 g/dL (3.5-5.1); Alkaline Phosphatase 84 U/L (38-126); Anion Gap 3 mmol/L (4-12); Aspartate Amino Transferase 27 U/L (14-36); Bilirubin,Total 0.8 mg/dL (0.2-1.3); Blood Urea Nitrogen 16 mg/dL (7-17); Calcium 8.9 mg/dL (8.4-10.2); Carbon Dioxide 27 mmol/L (22-30); Chloride 109 mmol/L (98-107); Estimated Glomerular Filt Rate > 60; Glucose 118 mg/dL (65-110); Potassium 3.9 mmol/L (3.4-5.0); Sodium 139 mmol/L (137-145)
== END 2024-02-28 11:19 | disposition home or self-care (01) ==
LOC: ANHLAB 11:21
PROVIDERS: PCP Internal Medicine; Visit Provider Internal Medicine
DX: E66.9 Obesity, unspecified (principal)
CPT/HCPCS: 36415; 80053

== ENCOUNTER 2024-06-30 07:30 | Outpatient (CLI) | payer MEDICARE, SELFPAY ==
[2024-06-30 08:29] LABS: Add Urine Microscopic? NO; Appearance Urine Clear (Clear); Bilirubin Urine Negative (Negative); Blood Urine Negative (Negative); Color Urine Yellow (Yellow); Glucose Urine UA Negative (Negative); Ketones Urine Negative (Negative); Leukocyte Esterase Ur Negative LEU/UL (Negative); Nitrate Urine Negative (Negative); Protein Urine Negative (Negative); Specific Grav Ur 1.014 (1.001-1.035)
[2024-06-30 08:50] LABS: Alanine Aminotransferase 36 U/L (6-35); Alkaline Phosphatase 90 U/L (38-126); Anion Gap 7 mmol/L (4-12); Aspartate Amino Transferase 36 U/L (14-36); Blood Urea Nitrogen 14 mg/dL (7-17); Calcium 9.4 mg/dL (8.4-10.2); Carbon Dioxide 27 mmol/L (22-30); Chloride 105 mmol/L (98-107); Cholesterol 155 mg/dL (0-200); Estimated Glomerular Filt Rate > 60; Glucose 114 mg/dL (65-110); HDL Direct 50 mg/dL; Potassium 3.6 mmol/L (3.4-5.0); Sodium 139 mmol/L (137-145); Triglycerides 126 mg/dL (<150)
[2024-06-30 09:01] LABS: LDL Cholesterol Direct 59 mg/dL
[2024-06-30 09:19] LABS: Thyroid Stimulating Hormone 0.572 uIU/mL (0.465-4.680)
[2024-06-30 10:46] LABS: Hemoglobin A1C 5.7 % (<5.7)
[2024-07-03 07:59] LABS: Reference Lab Test Name Vit D 25-OH
[2024-07-03 08:01] LABS: Reference Lab Test Result 37
== END 2024-06-30 07:31 | disposition home or self-care (01) ==
PROVIDERS: PCP Internal Medicine; Visit Provider Internal Medicine
DX: I10 Essential (primary) hypertension (principal); E03.9 Hypothyroidism, unspecified; R73.01 Impaired fasting glucose; M85.80 Other specified disorders of bone density and structure, unspecified site; E78.5 Hyperlipidemia, unspecified
CPT/HCPCS: 36415; 80053; 80061; 81003; 83036; 84443

== ENCOUNTER 2024-07-31 11:49 | Outpatient (CLI) | payer MEDICARE, SELFPAY ==
--- NOTE | ~2024-07-31 | MM_ITS ---
EXAMINATION: MM screening mary BI w melanie HISTORY: Screening mammogram, family history of breast cancer in her mother and sister. TECHNIQUE: Craniocaudal and mediolateral oblique 3-D tomosynthesis images were obtained and synthetic 2-D images were generated. CAD analysis was submitted and interpreted. COMPARISON: 05/20/2023, 05/17/2022, 03/10/2021, 03/08/2020 BREAST PARENCHYMAL COMPOSITION:Not Dense. There are scattered areas of fibroglandular density. FINDINGS: No suspicious mass, calcification, or architectural distortion are identified in either doc ast to suggest malignancy. There has been no suspicious interval change. IMPRESSION: No mammographic evidence of malignancy. Recommend routine screening mammography in one year. BI-RADS Category 1: Negative Reviewed, dictated and finalized at [facility].
== END 2024-07-31 11:50 | disposition home or self-care (01) ==
LOC: MICIMG 11:49
PROVIDERS: PCP Internal Medicine; Visit Provider Internal Medicine
DX: Z12.31 Encounter for screening mammogram for malignant neoplasm of breast (principal)
CPT/HCPCS: 77063; 77067

== ENCOUNTER 2025-03-30 13:59 | Outpatient (CLI) | payer MEDICARE, SELFPAY ==
--- NOTE | ~2025-03-30 | DEXA_ITS ---
Bone Density Report Name: RICARDO MORRIS Age: 74 Sex: Female Ethnicity: White Date of : 1950 Indication: postmenopausal; screening for osteoporosis; height loss; Referring Provider: QUINCY, NEGIN Saleem Study: Bone densitometry was performed. Exam Date: March 30, 2025 Accession number: [id number] Bone Density: Region BMD T-score Z-score Classification AP Spine(L1-L4) 0.940 -1.0 1.5 Normal Femoral Neck (Left) 0.668 -1.6 0.5 Osteopenia Total Hip (Left) 0.792 -1.2 0.7 Osteopenia Femoral Neck (Right) 0.741 -1.0 1.2 Normal Total Hip (Right) 0.856 -0.7 1.2 Normal Total Hip Mean 0.824 -1.0 1.0 Normal World Health Organization criteria for BMD impression classify patients as: Normal (T-score at or above -1.0), Osteopenia (T-score between -1.0 and -2.5), or Osteoporosis (T-score at or below -2.5). 10-year Fracture Risk(1): Major Osteoporotic Fracture 11% Hip Fracture 2.5% Reported Risk Factors: [place] (), Neck BMD=0.668, BMI=37.1 (1) FRAX(R) Version 3.08. Fracture probability calculated for an untreated patient. Fracture probability may be lower if the patient has received treatment. Clinical Information Provided by Patient: Has used the following medications: Boniva (i.e. ibandronate), Evista (i.e. raloxifene), Vitamin D Patient maximum height was 62 Menopause Age: 51 Onset of menses at age 11 Number of children 1 Impression: The patient has low bone mass, based on the Left Femoral Neck T-score. The patient has an estimated ten-year risk of hip fracture of 2.5% and an estimated ten-year risk of major fracture of 11%, based on the WHO FRAX algorithm. Discussion: BONE DENSITY IS LOW AT ONE OR MORE SKELETAL SITES. This patient's lowest T-score is low at one or more skeletal sites. It meets the World Health Organization's (WHO) criteria for ?low bone mass? (T-score between -1.0 and -2.5). The patient's 10-year risk of fracture as calculated by FRAX is less than the threshold where pharmacological therapy is recommended by the National Osteoporosis Foundation (NOF). However, all treatment decisions require clinical judgment and consideration of individual patient factors, including patient preferences, comorbidities, previous drug use, risk factors not captured in the FRAX model (e.g., frailty, falls, vitamin D deficiency, increased bone turnover, interval significant decline in bone density) and possible under or overestimation of fracture risk by FRAX. The patient should follow a healthful lifestyle (good nutrition with adequate calcium and vitamin D, and appropriate weight-bearing exercise). Follow-Up: Consider repeating this study in 2 to 3 years to reassess this patient's status, or sooner if there is some new clinical indication. Reported by: EVANS on 03/30/2025 2:38:00 PM. Reviewed, dictated and finalized at location A.
--- OUTSIDE RECORDS SUMMARY | 2025-03-30 14:03 | XMS_ITS | Patient Health Record ---
Author Organization [facility] sergio Address [address] [facility] [address] [place], [place] [address] Care Team Providers Care Cargo Mate Name Role Phone BOOGIE ASIF DMD Primary Care Provider Elissamelquiades roxanna SandersonKrish Unavailable [phone] ALLERGIES Allergen (clinical drug ingredient) Drug/Non Drug Allergy documented on EMR Reaction Allergy Type Onset Date Status penicillin eyes swell shut Drug Allergy Active Neosporin hives Drug Allergy Active REASON FOR REFERRAL No Information MEDICATIONS Medication SIG (Take, Route, Frequency, Duration) Notes Start Date End Date Status Hair, Skin, and Nails Gummies Active Ibuprofen PM Active Hydroxychloroquine 200 mg 1 tablets oral ly bid for 30 day(s) Active Artificial Tears Act nilsa levothyroxine 175 mcg (0.175 mg) 1 tab(s) orally once a day Active amlodipine besylate Active Magnesium Active zinc Active Vitamin D3 Active Vitamin C Active Calcium Active PROBLEMS Problem Type ICD Code Onset Dates Problem Status W/U Status Risk SNOMED Code Notes Problem Dry eye (H04.129) Active confirmed 232007574 Problem Hypothyroidism, unspecified type (E03.9) Active confirmed 94085985 Problem Dry mouth (R68.2) Active confirmed 07314659 Problem Oral ulcer (K12.1) Active confirmed 88941742 Problem Sjogren's syndrome with tubulo-intersti tial nephropathy (M35.04) Active confirmed [id number] PLAN OF TREATMENT Pending Test Test Name Order Date Eye exam - Plaquenil 12/14/2021 Insurance Providers Payer Name Payer Address Payer Phone Subscriber Number Group Number Insured Name Patient Relationship to Insured Coverage Start Date Coverage End Date [facility] Advantage PPO [address] [address] [place] [address] [id number] Terry Bowden Self - patient is the insured 1 MEDICARE [address] [address] [place] [address] [id number] Terry Bowden Self - patient is the insured 3 MEDICAL (GENERAL) HISTORY Medical History History ICD Code Ringing in ears thyroid disease irregular heart beat lump in breast high blood pressure gallstones Surgical History Surgery Date(Month/Year) appendectomy 1958 lumpectomy 1983 gallbladder surgery 2001 wrist surgery rt 2003 lt wrist surgery , lt knee arthroscopic surgery 2008 lt knee replacement 2008 rt knee replacement 2012 cataract surgeries 2018 lump removal 2019 fatty growth on back 2019 Hospitalization History Reason Date(Month/Year) foot issues 20,21 sleep study 2003 gave 1972
--- OUTSIDE RECORDS SUMMARY | 2025-03-30 14:03 | XMS_ITS | Encounter Summary ---
Author Organization [facility] Address [address] [place] [address] Care Team Providers Care Vegetable Grader Name Role Phone Douglas Whalen MD Unavailable [phone] Isabelle Gonzales MD Primary Care Provider [phone] Encounter Details Date Type Department Care Team (Late st Contact Info) Description 08/09/2021 Lab Requisition [facility] [address] [place] [address] Sukhdev Hermosillo MD [address] [place] [address] Social History Tobacco Use Types Packs/Day Years Used Date Smoking Tobacco: Never Smokeless Tobacco: Never Alcohol Use Standard Drinks/Week Comments No 0 (1 standard drink = 0.6 oz pur e alcohol) Comments Unknown Sex and Gender Information Value Date Recorded Sex Assigned at Female 09/06/2021 10:31 AM MEDICAL INSURANCE BILLER Legal Sex Female 1:04 PM MEDICAL INSURANCE BILLER Gender Identity Female 09/06/2021 10:31 AM MEDICAL INSURANCE BILLER Sexual Orientation Lesbian 09/06/2021 10 :31 AM MEDICAL INSURANCE BILLER documented as of this encounter Plan of Treatment Not on file documented as of this encounter Procedures Procedure Name Priority Date/Time Associated Diagnosis Comments DERMATOPATHOLOGY Routine 08/08/2021 12:0 0 AM MEDICAL INSURANCE BILLER documented in this encounter Results * DERMATOPATHOLOGY (08/08/2021 12:00 AM MEDICAL INSURANCE BILLER) Case Report Dermatopathology Report Case: [id number] Authorizing Provider: Sukhdev Hermosillo MD Collected: 08/08/2021 12:00 AM Ordering Location: [facility] Derm[facility] Lab Received: 08/09/2021 11:55 AM Pathologist: Bianka Bernstein MD Specimen: Skin, left prox ext FA 11:58 AM [facility] DERMATOPATHOLOGY [facility]OR[facility] Final Diagnosis Specimen A. SKIN, left prox ext FA: SQUAMOUS PROLIFERATION (D48.5) (see microscopic description and comment) 11:58 AM [facility] DERMATOPATHOLOGY [facility]ORATORY at [address] [facility] Clinical History R/O KA. 11:58 AM [facility] DERMATOPATHOLOGY [facility]OR[facility] Gross Description Specimen A: Received is one formalin filled container labeled with the patient's name and designated left prox ext FA. The specimen consists of a curettage and desiccation biopsy measuring [id number]. Jar 0. 11:58 AM [facility] DERMATOPATHOLOGY [facility] Microscopic Description Specimen A. SKIN, left prox ext FA: Sections show an exo- and endophytic squamous proliferation with focal maturational disarray and nuclear pleomorphism of keratinocytes. There is adjacent dermal fibrosis. There is focal parakeratosis. Additional deeper sections were obtained and reviewed. COMMENT: The histological differential diagnosis includes a keratoacanthoma-typ e squamous cell carcinoma, which is somewhat favored, and less likely a ruptured follicle or cyst. 11:58 AM [facility] DERMATOPATHOLOGY [facility]OR[facility] Disclaimer An external and internal positive and negative controls are appropriate for the histochemical, immunohistochemical and immunofluorescence stain(s) in this case (if any), except where stated explicitly. The performance characteristics of the stain(s) cited in this report were developed and its performance characteristic determined by the Dermatopathology Laboratory at [facility], directed by Dr. Fatou Barba. These tests need not be, and therefore are not, approved by the [place] Food and Drug Administration. The tests are used for clinical purposes. Billing Codes Specimen Charges Stain Charges 15761 1 11:58 AM [facility] DERMATOPATHOLOGY LABORATORY Embedded Images 11:58 AM [facility] DERMATOPATHOLOGY LABOR[facility]ORY Pathology/Cytolog y TISSUE SPECIMEN FROM SKIN / Unknown 08/08/2021 08/09/2021 11:55 AM MEDICAL INSURANCE BILLER Sukhdev Hermosillo MD LAB - PATHOLOGY/CYTOLOGY ORD ERABLES Final Result DERMATOPATHOLOGY LABORATORY [facility] - Department of Dermatology [facility] Medicine [address] [place] [address], [address] [phone] documented in this encounter Visit Diagnoses Not on filedocumented in this encounter Care Teams Vegetable Grader Relationship Specialty Start Date End Date Isabelle Gonzales [place] [address] PCP - General Internal Medicine 07/31/22 Douglas Whalen MD Orthopedic Surgery 12/28/11 documented as of this encounter
--- OUTSIDE RECORDS SUMMARY | 2025-03-30 14:03 | XMS_ITS | Clinical Summary ---
Author Organization [facility] Address [address] [place] [address] Phone Care Team Providers Care Manager Medical Name Role Phone Unavailable Primary Care Provider Unavailabl e Social History Tobacco Use Types Packs/Day Years Used Date Smoking Tobacco: Never Assessed Comments Unknown Sex and Gender Information Value Date Recorded Sex Assigned at Not on file Legal Sex Female 12:09 PM MACHINE TURNER Gender Identity Not on file Sexual Orientation Not on file Plan of Treatment Health Maintenance Due Date Last Done Comments DTAP/TDAP/TD VACCINES (1 - Tdap) 1967 PNEUMOCOCCAL VACCINE 50+ YEARS (1 of 1 - PCV) 04/04/19 98 ZOSTER VACCINE (1 of 2) 1998 OSTEOPOROSIS SCREENING 2013 RSV VACCINE (60+ or ) (1 - 1-dose 75+ series) 2023 INFLUENZA VACCINE (#1) 2024 Insurance [facility] [id number]
--- OUTSIDE RECORDS SUMMARY | 2025-03-30 14:03 | XMS_ITS | Encounter Summary ---
Author Organization [facility] Address [address] [facility] [place] [address] Care Team Providers Care Liquid Loader Name Role Phone Douglas Whalen MD Unavailable [phone] Isabelle Gonzales MD Primary Care Provider [phone] Encounter Details Date Type Department Care Team (Late st Contact Info) Description 10/23/2019 Lab Requisition [facility] Care DermPath Lab [address] [facility] [place] [address] Sukhdev Hermosillo MD [address] [place] [address] Social History Tobacco Use Types Packs/Day Years Used Date Smoking Tobacco: Never Smokeless Tobacco: Never Alcohol Use Standard Drinks/Week Comments No 0 (1 standard drink = 0.6 oz pur e alcohol) Comments Unknown Sex and Gender Information Value Date Recorded Sex Assigned at Female 09/06/2021 10:31 AM BUSINESS INTELLIGENCE DEVELOPER Legal Sex Female 1:04 PM BUSINESS INTELLIGENCE DEVELOPER Gender Identity Female 09/06/2021 10:31 AM BUSINESS INTELLIGENCE DEVELOPER Sexual Orientation Lesbian 09/06/2021 10 :31 AM BUSINESS INTELLIGENCE DEVELOPER documented as of this encounter Plan of Treatment Not on file documented as of this encounter Procedures Procedure Name Priority Date/Time Associated Diagnosis Comments DERMATOPATHOLOGY Routine 10/22/2019 12:0 0 AM BUSINESS INTELLIGENCE DEVELOPER documented in this encounter Results * DERMATOPATHOLOGY (10/22/2019 12:00 AM BUSINESS INTELLIGENCE DEVELOPER) Case Report Dermatopathology Report Case: [id number] Authorizing Provider: Sukhdev Hermosillo MD Collected: 10/22/2019 12:00 AM Ordering Location: [facility] DermPath Lab Received: 10/23/2019 07:40 AM Pathologist: Iirs Hernadez MD Specimen: Skin, dorsal left little finger MCP 0 1:41 PM [facility] DERMATOPATHOLOGY LABORATORY Final Diagnosis Specimen A. 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 0 1:41 PM [facility] DERMATOPATHOLOGY LABORATORY Gross Description Specimen A: Received is one formalin filled container labeled with the patient's name and designated dorsal left little finger MCP. The specimen consists of a shave biopsy (3 pieces) measuring [id number], 2v4t1iu, & 8d2y3vj. Jar 0. 0 1:41 PM [facility] DERMATOPATHOLOGY LABORATORY Microscopic Description Specimen A. SKIN, dorsal left little finger MCP: There are lymphocytes around blood vessels and histiocytes between collagen bundles some of which are arranged in a palisade. The collagen is focally altered. 0 1:41 PM [facility] DERMATOPATHOLOGY LABORATORY Disclaimer An external and internal positive and negative controls are appropriate for the histochemical, immunohistochemical and immunofluorescence stain(s) in this case (if any), except where stated explicitly. The performance characteristics of the stain(s) cited in this report were developed and its performance characteristic determined by the Dermatopathology Laboratory at [facility], directed by Dr. Fatou Barba. These tests need not be, and therefore are not, approved by the [place] Food and Drug Administration. The tests are used for clinical purposes. Billing Codes Specimen Charges Stain Charges 49063 1 0 1:41 PM [facility] DERMATOPATHOLOGY LABORATORY Embedded Images 0 1:41 PM [facility] DERMATOPATHOLOGY LABORATORY Pathology/Cytolog y TISSUE SPECIMEN FROM SKIN / Unknown 10/22/2019 10/23/2019 7:40 AM [facility] Sukhdev Hermosillo MD LAB - PATHOLOGY/CYTOLOGY ORD ERABLES Final Result DERMATOPATHOLOGY LABORATORY [facility] - Department of Dermatology [facility] [facility], 5th Floor Lab [address] [phone] documented in this encounter Visit Diagnoses Not on filedocumented in this encounter Care Teams Liquid Loader Relationship Specialty Start Date End Date Isabelle Gonzales MD [address] [place] [address] PCP - General Internal Medicine 07/31/22 Douglas Whalen MD Orthopedic Surgery 12/28/11 documented as of this encounter
--- OUTSIDE RECORDS SUMMARY | 2025-03-30 14:03 | XMS_ITS | Continuity of Care Document ---
Author Organization [facility] Address [address] [place] [address] Phone Care Team Providers Care Entry Level Project Coordinator Name Role Phone Smyth OD, Gerardo Unavailable Unavailable Procedures Procedure Date Eye Exam & Treatment Refraction Eye Exam & Treatment Refraction No Charge Glasses Check Progressive Lens, Polycarb No Charge Glasses Check Progressive Lens, Plastic UV Coat Miscellaneous Vision Service - Supplies Eye Exam & Treatment Refraction Eye Exam & Treatment Refraction Advance Directives Directive Yes / No Effective Date File Name No Information Encounters Encounter Description Practice Location Reason(s) For Visit Diagnoses Date Provider Providers Copied on Encounter [facility], [address] [place] [address] [address], [place], [place], [address], tel:[phone] [facility] No Information 6-201 0 Smyth OD Gerardo. [address] , [address], [place], [address], [place]. tel:[phone] [facility], [address], [place], [place], [address], [place] tel:[phone] [facility] No Information 1-200 9 Smyth OD Gerardo. [address] , [address], [place], [address], [place]. tel:[phone] [facility], [address], [place], [place], [address], [place] tel:[phone] [facility] No Information 9-200 8 Smyth OD Gerardo. [address] [facility] [address] , [address], [place], [address], [place]. tel:[phone] [facility], [address], [place], [place], [address], [place] tel:[phone] [facility] No Information 4-200 8 [facility] . [address] [facility], [address], [place], [place], [address], [place]. tel:[phone] Referring Provider: Gerardo Sparks, [address] [place] [address] [address], [place], [address]. tel:[phone] sulting Provider: Ann-Marie Garcias, [address] [place], [address]. tel:[phone] [facility], [address], [place], [place], [address], [place] tel:[phone] [facility] No Information 4-200 8 Smyth OD Gerardo. [facility] , [address], [place], [address], [place]. tel:[phone] [facility], [address], [place], [place], [address], [place] tel:[phone] [facility] No Information 7200 8 [facility] . [address] [facility], [address], [place], [place], [address], [place]. tel:[phone] Referring Provider: Gerardo Sparks, [address] [place], [place] [address], [place], [address]. tel:[phone] sulting Provider: Tito Mancilla, [address] [place], [place] [address]ate [facility], [place], [address]. tel:[phone] [facility], [address], [place], [place], [address], tel:[phone] [facility] No Information 1-200 8 Smyth OD Gerardo. [address] , [address], [place], [place], [facility], . tel:[phone] [facility], [address], [place], [place], [address], tel:[phone] [facility] No Information 4-200 7 Smyth OD Gerardo. [address] [facility] , [address], [place], [place], [facility], . tel:[phone] Family History Family Member Type Diagnosis Age At Onset No Information Payers Payer name Insurance type Covered constitution party ID Clarissa bassett(s) [employer] Plan [id number] Social History Type Description Quantity Date Captured Comments Sex Female Smoking Status No Information Chief Complaint And Reason For Visit No Information Reason For Referral Reason For Referral No Information History Of Present Illness Encounter Date Complaint History Of Prese nt Illness No Information Functional Status Date Functional Assessmen t No Information Instructions Date Instruction Additional Infor mation No Information Assessments Type Assessment Date No Information Patient Care Teams Name Effective Dates (start - stop) Status Members No Information
--- OUTSIDE RECORDS SUMMARY | 2025-03-30 14:03 | XMS_ITS | Clinical Summary ---
Author Organization [facility] [employer] Address [address] [facility] [place] [address] Care Team Providers Care Metal Ceiling Builder Name Role Phone Douglas Whalen MD Unavailable [phone] Isabelle Gonzales MD Primary Care Provider [phone] Source Comments [facility] [employer],non-owned Affiliates and Associated Physician Practices is amultiple site organization consisting of ambulatory clinics and hospital sitesin [place], [place], [place]. This disclosure is being madepursuant to the Care Everywhere program and may not contain all information available regarding this patient. Last updated 18.[facility] [employer] Allergies Active Allergy Reactions Criticality Noted Date Comments Gqewsvft-Rcxgojxdah-Essdltff n Unknown 06/05/2018 Penicillins Swelling Medium 10/29/2011 Eyes swelled shut by the end of the day Medications * Be aware that medications may not be up to date on this document. Alwaysverify current medications with the patient. amLODIPine (Norvasc) 10 MG tablet Take 1 (one) tablet by mouth once daily Active diphenhydramin e-APAP, sleep, (Tylenol PM Es) 25-500 MG tablet Take 1 (one) tablet by mouth nightly as needed Active vitamin D3 (CHOLECALCIFER OL) (25 MCG) 1000 UNIT capsule Take 1 (one) capsule by mouth once daily Active SYNTHROID 150 MCG tablet TAKE 1 TABLET BY MOUTH DAILY IN THE MORNING ON AN EMPTY STOMACH 2 Active lifitegrast (Xiidra) 5 % opthalmic solution 1 (one) drop 2 times daily Active acetaminophen (Tylenol) 500 MG tablet Take 2 (two) tablets by mouth every 8 hours as needed for Fever or Pain Maximum allowable Acetaminophen amount = 4 Grams (4000 mg) / 24 hours. 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 01/01/2012 Social History Tobacco Use Types Packs/Day Years Used Date Smoking Tobacco: Never Smokeless Tobacco: Never Tobacco Cessation:Counseling Given: Not Answered Alcohol Use Standard Drinks/Week Comments No 0 (1 standard drink = 0.6 oz pur e alcohol) Comments Unknown Sex and Gender Information Value Date Recorded Sex Assigned at Female 09/06/2021 10:31 AM ROTARY PUMP OPERATOR Legal Sex Female 1:04 PM ROTARY PUMP OPERATOR Gender Identity Female 09/06/2021 10:31 AM ROTARY PUMP OPERATOR Sexual Orientation Lesbian 09/06/2021 10 :31 AM ROTARY PUMP OPERATOR Last Filed Vital Signs Vital Sign Reading Time Taken Comments Blood Pressure 110/79 08/16/2022 9:35 AM ROTARY PUMP OPERATOR Pulse 71 08/16/2022 9:40 AM ROTARY PUMP OPERATOR Temperature 36.2 C (97.2 F) 08/16/2022 8:57 AM ROTARY PUMP OPERATOR Respiratory Rate 21 08/16/2022 9:40 AM ROTARY PUMP OPERATOR Oxygen Saturation 98% 08/16/2022 9:40 AM ROTARY PUMP OPERATOR Inhaled Oxygen Concentration - - Weight 87.5 kg (193 lb) 03/04/2023 8:39 AM CDT Height 154.9 cm (5' 1) 03/04/2023 8:39 AM CDT Body Mass Index 36.47 03/04/2023 8:39 AM CDT Plan of Treatment Health Maintenance Due Date Last Done Comments BONE DENSITY TESTING 1950 HEPATITIS C SCREENING 03/31/1966 DTAP/TDAP/TD VACCINES (1 - Tdap) 1967 PNEUMOCOCCAL VACCINE 50+ (1 of 1 - PCV) 1998 ZOSTER VACCINE (1 of 2) 1998 Respiratory Syncytial Virus (RSV) Vaccine Pt: or over 60 yrs (1 - 1-dose 75+ series) 2023 COVID-19 VACCINE (4 - 2023-2 5 season) 2024 06/24/2021, 12/03/2020, 11/05/2020 DEPRESSION SCREENING 09/30/2024 MEDICARE AWV CALENDAR YEAR 2024 INFLUENZA VACCINE (Season Ended) 2025 05/31/2021, 06/02/2020, 07/08/2017 HEPATITIS B VACCINE Aged Out No longe r eligible based on patient's age to complete this topic HIB VACCINE Aged Out No longer eligi ble based on patient's age to complete this topic HPV VACCINE Aged Out No longer eligi ble based on patient's age to complete this topic MENINGOCOCCAL (Group B) VACCINE SHARED DECISION-MAKING Aged Out No longer eligible based on patient's age to complete this topic MENINGOCOCCAL GROUPS A/C/Y/W VACCINE Aged Out No longer eligible b ased on patient's age to complete this topic Medical Devices Implanted Type Area Painter Bottom Device Identifier Shelf Expiration Date Model / Serial / Lot [place] Sut Swvlck Kntls 4.75mm Fibertape Implanted:Qty: 1 on 08/16/2022 by Talita Andino MD at [facility] Right: Shoulder [employer] 06/29/[id number] / / [id number] Insurance AET[employer] MEDICARE ADV [facility] MANAGED MEDICARE ADV Advance Directives Documents on File Type Date Recorded Patient Clerk Of Scales Expl anation Adv Directive/Living Will/POA 12/16/2011 10:10 AM Adv Directive/Living Will/POA 11/15/2011 2:38 PM * FULL RESUSCITATION (Latest Code Status on File) Date Activated Date Inactivated Comments 07/09/2012 11:09 AM 07/12/2012 12:29 PM * FULL RESUSCITATION Date Activated Date Inactivated Comments 12/12/2011 12:01 PM 12/16/2011 1:38 AM Care Teams Metal Ceiling Builder Relationship Specialty Start Date End Date Isabelle Gonzales MD [address] [place] [address] PCP - General Internal Medicine 07/31/22 Douglas Whalen MD Orthopedic Surgery 12/28/11
== END 2025-03-30 14:00 | disposition home or self-care (01) ==
LOC: ANHIMG 13:59
PROVIDERS: PCP Internal Medicine; Visit Provider Nurse Practitioner
DX: M85.89 Other specified disorders of bone density and structure, multiple sites (principal); Z13.820 Encounter for screening for osteoporosis
CPT/HCPCS: 77080

== ENCOUNTER 2025-05-03 06:13 | Emergency (ER) | payer MEDICARE, SELFPAY ==
--- NOTE | ~2025-05-03 | XR_ITS ---
XR hip RT 2V w AP pelvis 05/03/2025 06:54 Indication: Pelvic pain Procedure: AP pelvis and 2 views right hip Comparison: No prior studies for comparison. Findings: Pelvic rings intact. Sacral foramen are symmetric. No fracture, subluxation or dislocation. There is mild osteoarthritis of the hips. There is lower lumbar spondylosis. There are calcified sebastian rine fibroids. Impression: 1: No acute fracture. Reviewed, dictated and finalized at location A. Impression: 1: No acute fracture.
--- NOTE | ~2025-05-03 | CT_ITS ---
EXAMINATION: CT lumbar spine wo con DATE: 05/03/2025 07:15 INDICATION: Low back pain TECHNIQUE: Computed tomography (CT) of the lumbar spine was performed without intravenous contrast. T he dose-length product was 909.14 mGy-cm. Automated exposure control and iterative reconstruction cherri hnique were employed. COMPARISON: None FINDINGS: There is degenerative anterolisthesis at L3-4 secondary to facet hypertrophy. There is disc narrowing at L4-5 and L5-S1. No acute fracture or traumatic malalignment. There are calcified granul omas of the spleen. There is a splenic artery aneurysm measuring 1.4 cm. There is a left renal cyst. There is atherosclerosis of the aorta. Status post cholecystectomy. There is advanced multilevel unci jenni hypertrophy. There is dextroscoliosis centered at L4. There is right lateral listhesis at L4-5. There is central canal and bilateral neural foraminal narrowing at L5-S1 and L4-5 secondary to combin ation of endplate hypertrophy, disc bulging and facet hypertrophy. IMPRESSION: 1. Severe lumbar spondylosis with associated spinal stenosis at L4-5 and L5-S1. 2: Splenic artery aneurysm measuring 1.4 cm, partially calcified. Reviewed, dictated and finalized at location A.
--- OUTSIDE RECORDS SUMMARY | 2025-05-03 06:16 | XMS_ITS | Encounter Summary ---
Author Organization [facility] Address [facility] [place] [address] Care Team Providers Care Police Lieutenant Precinct Name Role Phone Mounika Hurtado BRICK WHEELER Primary Care Provider [phone] Encounter Details Date Type Department Care Team (Latest Contact Info) Description 11/13/2024 MedWhatt Message Enc [facility] [place] [address] [place], [place] [address] Mounika Hurtado, BRICK WHEELER [address] [place], [place] [address] Influenza A duration? Social History Tobacco Use Types Packs/Day Years Used Date Smoking Tobacco: Never Passive Smoke Exposure: Never Smokeless Tobacco: Never Alcohol Use Standard Drinks/Week Comments Never 0 (1 standard drink = 0.6 oz pur e alcohol) Comments No Sex and Gender Information Value Date Recorded Sex Assigned at Female 11/09/2024 9:17 AM BOARD HANDLER Legal Sex Female 6:38 PM CDT Gender Identity Female 11/09/2024 9:17 AM BOARD HANDLER Sexual Orientation Lesbian or Clar[place] 11/09/2024 9: 17 AM BOARD HANDLER documented as of this encounter Plan of Treatment Upcoming Encounters Date Type Department Care Team (Late st Contact Info) Description 06/09/2025 8:00 AM CDT [facility] [place] [address] [place], [place] [address] Mounika Hurtado, CALIN [address] [place] [address] 06/09/2025 8:30 AM CDT Office Visit [facility] [place] [address] [place] [address] Mounika Hurtado NP [address] [place] [address] documented as of this encounter Visit Diagnoses Not on filedocumented in this encounter Care Teams Police Lieutenant Precinct Relationship Specialty Start Date End Date Mounika Hurtado NP [address] [place] [address] PCP - General NURSE PRACTITIONER 08/03/24 documented as of this encounter
--- OUTSIDE RECORDS SUMMARY | 2025-05-03 06:16 | XMS_ITS | Encounter Summary ---
Author Organization [facility] Address [address] [facility] [place] [address] Care Team Providers Care Air Tube Releaser Name Role Phone Douglas Whalen MD Unavailable [phone] Isabelle Gonzales MD Primary Care Provider [phone] Encounter Details Date Type Department Care Team (Late st Contact Info) Description 08/09/2021 Lab Requisition [facility] Care DermPath Lab [address] [facility] [place] [address] Sukhdev Hermosillo MD [address] [place] [address] Social History Tobacco Use Types Packs/Day Years Used Date Smoking Tobacco: Never Smokeless Tobacco: Never Alcohol Use Standard Drinks/Week Comments No 0 (1 standard drink = 0.6 oz pur e alcohol) Comments Unknown Sex and Gender Information Value Date Recorded Sex Assigned at Female 09/06/2021 10:31 AM EMANATIONS ANALYSIS TECHNICIAN Legal Sex Female 1:04 PM EMANATIONS ANALYSIS TECHNICIAN Gender Identity Female 09/06/2021 10:31 AM EMANATIONS ANALYSIS TECHNICIAN Sexual Orientation Lesbian 09/06/2021 10 :31 AM EMANATIONS ANALYSIS TECHNICIAN documented as of this encounter Plan of Treatment Not on file documented as of this encounter Procedures Procedure Name Priority Date/Time Associated Diagnosis Comments DERMATOPATHOLOGY Routine 08/08/2021 12:0 0 AM EMANATIONS ANALYSIS TECHNICIAN documented in this encounter Results * DERMATOPATHOLOGY (08/08/2021 12:00 AM EMANATIONS ANALYSIS TECHNICIAN) Case Report Dermatopathology Report Case: [id number] Authorizing Provider: Sukhdev Hermosillo MD Collected: 08/08/2021 12:00 AM Ordering Location: [facility] DermPath Lab Received: 08/09/2021 11:55 AM Pathologist: Bianka Bernstein MD Specimen: Skin, left prox ext FA 11:58 AM [facility] DERMATOPATHOLOGY LABORATORY Final Diagnosis Specimen A. SKIN, left prox ext FA: SQUAMOUS PROLIFERATION (D48.5) (see microscopic description and comment) 11:58 AM [facility] DERMATOPATHOLOGY LABORATORY at [address] [facility] Clinical History R/O KA. 11:58 AM [facility] DERMATOPATHOLOGY LABORATORY Gross Description Specimen A: Received is one formalin filled container labeled with the patient's name and designated left prox ext FA. The specimen consists of a curettage and desiccation biopsy measuring [id number]. Jar 0. 11:58 AM [facility] DERMATOPATHOLOGY LABORATORY Microscopic Description Specimen A. SKIN, [...] a ruptured follicle or cyst. 11:58 AM [facility] DERMATOPATHOLOGY LABORATORY Disclaimer An external and internal positive and negative controls are appropriate for the histochemical, immunohistochemical and immunofluorescence stain(s) in this case (if any), except where stated explicitly. The performance characteristics of the stain(s) cited in this report were developed and its performance characteristic determined by the Dermatopathology Laboratory at [facility], directed by Dr. Fatou Barba. These tests need not be, and therefore are not, approved by the [place] Food and Drug Administration. The tests are used for clinical purposes. Billing Codes Specimen Charges Stain Charges 06966 1 11:58 AM [facility] DERMATOPATHOLOGY LABORATORY Embedded Images 11:58 AM [facility] DERMATOPATHOLOGY LABORATORY Pathology/Cytolog y TISSUE SPECIMEN FROM SKIN / Unknown 08/08/2021 08/09/2021 11:55 AM EMANATIONS ANALYSIS TECHNICIAN Sukhdev Hermosillo MD LAB - PATHOLOGY/CYTOLOGY ORD ERABLES Final Result DERMATOPATHOLOGY LABORATORY [facility] - Department of Dermatology [facility] Medicine [address] [place] [address], [address] [phone] documented in this encounter Visit Diagnoses Not on filedocumented in this encounter Care Teams Air Tube Releaser Relationship Specialty Start Date End Date Isabelle Gonzales [place] [address] [address] PCP - General Internal Medicine 07/31/22 Douglas Whalen MD Orthopedic Surgery 12/28/11 documented as of this encounter
--- OUTSIDE RECORDS SUMMARY | 2025-05-03 06:16 | XMS_ITS | Encounter Summary ---
Author Organization [facility] Address [facility] [place] [address] Care Team Providers Care Manager Process Name Role Phone Mounika Hurtado SOFTWARE TEST AUTOMATION ENGINEER Primary Care Provider [phone] Encounter Details Date Type Department Care Team (Late st Contact Info) Description 02/23/2025 MyChart Message Enc [facility] Medical [facility] Multispecialty Care [place] [address] [place] [address] Mounika Hurtado NP [address] [place] [address] Another thing Social History Tobacco Use Types Packs/Day Years Used Date Smoking Tobacco: Never Passive Smoke Exposure: Never Smokeless Tobacco: Never Alcohol Use Standard Drinks/Week Comments Never 0 (1 standard drink = 0.6 oz pur e alcohol) PHQ-2 Answer Date Recorded Patient Health Questionnaire-2 Score 0 01/28/2025 Comments No Sex and Gender Information Value Date Recorded Sex Assigned at Female 11/09/2024 9:17 AM HYDRO STATION OPERATOR Legal Sex Female 6:38 PM CDT Gender Identity Female 11/09/2024 9:17 AM HYDRO STATION OPERATOR Sexual Orientation Lesbian or Claros 11/09/2024 9: 17 AM HYDRO STATION OPERATOR documented as of this encounter Plan of Treatment Upcoming Encounters Date Type Department Care Team (Late st Contact Info) Description 06/09/2025 8:00 AM CDT Office Visit [facility] Medical [facility] Mult[facility]ialty Care [place] [address] [place] [address] Mounika Hurtado NP [address] [place] [address] 06/09/2025 8:30 AM CDT Office Visit [facility] Medical Group Multispecialty Care [place] [address] [place] [address] Mounika Hurtado NP [address] [facility] [address] [place] [address] documented as of this encounter Visit Diagnoses Not on filedocumented in this encounter Care Teams Manager Process Relationship Specialty Start Date End Date Mounika Hurtado NP [address] [facility] [address] [place] [address] PCP - General NURSE PRACTITIONER 08/03/24 documented as of this encounter
--- OUTSIDE RECORDS SUMMARY | 2025-05-03 06:16 | XMS_ITS | Encounter Summary ---
Author Organization [facility] Address [address] [facility] [place] [address] Care Team Providers Care Or First Assist Registered Nurse Name Role Phone Douglas Whalen MD Unavailable [phone] Isabelle Gonzales MD Primary Care Provider [phone] Encounter Details Date Type Department Care Team (Late st Contact Info) Description 10/23/2019 Lab Requisition [facility] Care [facility] Lab [address] [facility] [place] [address] Sukhdev Hermosillo MD [address] [place] [address] Social History Tobacco Use Types Packs/Day Years Used Date Smoking Tobacco: Never Smokeless Tobacco: Never Alcohol Use Standard Drinks/Week Comments No 0 (1 standard drink = 0.6 oz pur e alcohol) Comments Unknown Sex and Gender Information Value Date Recorded Sex Assigned at Female 09/06/2021 10:31 AM INSURANCE AND BENEFITS CLERK Legal Sex Female 1:04 PM INSURANCE AND BENEFITS CLERK Gender Identity Female 09/06/2021 10:31 AM INSURANCE AND BENEFITS CLERK Sexual Orientation Lesbian 09/06/2021 10 :31 AM INSURANCE AND BENEFITS CLERK documented as of this encounter Plan of Treatment Not on file documented as of this encounter Procedures Procedure Name Priority Date/Time Associated Diagnosis Comments DERMATOPATHOLOGY Routine 10/22/2019 12:0 0 AM INSURANCE AND BENEFITS CLERK documented in this encounter Results * DERMATOPATHOLOGY (10/22/2019 12:00 AM INSURANCE AND BENEFITS CLERK) Case Report Dermatopathology Report Case: [id number] Authorizing Provider: Sukhdev Hermosillo MD Collected: 10/22/2019 12:00 AM Ordering Location: [facility] D[facility] Lab Received: 10/23/2019 07:40 AM Pathologist: Iris Hernadez MD Specimen: Skin, dorsal left little finger MCP 0 1:41 PM [facility]ERMAT[facility] Final Diagnosis Specimen A. 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 0 1:41 PM [facility] Gross Description Specimen A: Received is one formalin filled container labeled with the patient's name and designated dorsal left little finger MCP. The specimen consists of a shave biopsy (3 pieces) measuring [id number], [id number], & [id number]. Jar 0. 0 1:41 PM [facility] Microscopic Description Specimen A. SKIN, dorsal left little finger MCP: There are lymphocytes around blood vessels and histiocytes between collagen bundles some of which are arranged in a palisade. The collagen is focally altered. 0 1:41 PM [facility]ERMAT[facility] Disclaimer An external and internal positive and negative controls are appropriate for the histochemical, immunohistochemical and immunofluorescence stain(s) in this case (if any), except where stated explicitly. The performance characteristics of the stain(s) cited in this report were developed and its performance characteristic determined by the Dermatopathology Laboratory at [facility], directed by Dr. Fatou Barba. These tests need not be, and therefore are not, approved by the [place] Food and Drug Administration. The tests are used for clinical purposes. Billing Codes Specimen Charges Stain Charges 91920 1 0 1:41 PM [facility] Embedded Images 0 1:41 PM [facility] Pathology/Cytolog y TISSUE SPECIMEN FROM SKIN / Unknown 10/22/2019 10/23/2019 7:40 AM [facility] Sukhdev Hermosillo MD LAB - PATHOLOGY/CYTOLOGY ORD ERABLES Final Result DERMATOPATHOLOGY LABORATORY [facility] - Department of Dermatology [facility] [facility], 5th Floor Lab [address] [phone] documented in this encounter Visit Diagnoses Not on filedocumented in this encounter Care Teams Or First Assist Registered Nurse Relationship Specialty Start Date End Date Isabelle Gonzales MD [address] [place] [address] PCP - General Internal Medicine 07/31/22 Douglas Whalen MD Orthopedic Surgery 12/28/11 documented as of this encounter
--- OUTSIDE RECORDS SUMMARY | 2025-05-03 06:16 | XMS_ITS | Encounter Summary ---
Author Organization [facility] Address [facility] [place] [address] Care Team Providers Care Mathematics Professor Name Role Phone Mounika Hurtado SECURITY SME Primary Care Provider [phone] Encounter Details Date Type Department Care Team (Late st Contact Info) Description 11/26/2024 [facility] [place] [facility] Message Enc [place] [address] [place] [address] Mounika Hurtado, SECURITY SME [address] [place], [place] [id number] Update Social History Tobacco Use Types Packs/Day Years Used Date Smoking Tobacco: Never Passive Smoke Exposure: Never Smokeless Tobacco: Never Alcohol Use Standard Drinks/Week Comments Never 0 (1 standard drink = 0.6 oz pur e alcohol) Comments No Sex and Gender Information Value Date Recorded Sex Assigned at Female 11/09/2024 9:17 AM SENIOR ARCHITECT/DESIGN MANAGER Legal Sex Female 6:38 PM CDT Gender Identity Female 11/09/2024 9:17 AM SENIOR ARCHITECT/DESIGN MANAGER Sexual Orientation Lesbian or Claros 11/09/2024 9: 17 AM SENIOR ARCHITECT/DESIGN MANAGER documented as of this encounter Plan of Treatment Upcoming Encounters Date Type Department Care Team (Late st Contact Info) Description 06/09/2025 8:00 AM CDT Office Visit [place] [address] [place] [address] Mounika Hurtado, CALIN [address] [place] [address] 06/09/2025 8:30 AM CDT Office Visit [facility] Medical Group Multispecialty Care - [place] [address] [place] [address] Mounika Hurtado, SECURITY SME [address] [place] [address] documented as of this encounter Visit Diagnoses Not on filedocumented in this encounter Care Teams Mathematics Professor Relationship Specialty Start Date End Date Mounika Hurtado SECURITY SME [address] [place] [address] PCP - General NURSE PRACTITIONER 08/03/24 documented as of this encounter
--- OUTSIDE RECORDS SUMMARY | 2025-05-03 06:16 | XMS_ITS | Encounter Summary ---
Author Organization [facility] Address [facility] [place] [address] Care Team Providers Care Ceramic Painter Name Role Phone Mounika Hurtado SUPERVISOR CABINETMAKER Primary Care Provider [phone] Encounter Details Date Type Department Care Team (Latest Contact Info) Description 09/09/2024 [facility] Message Enc [place] [address] [facility] [facility] [address] [place] [address] Mounika Hurtado, SUPERVISOR CABINETMAKER [address] [facility] [address] [place] [address] Annual Medicare Wellness Visit Social History Tobacco Use Types Packs/Day Years Used Date Smoking Tobacco: Never Passive Smoke Exposure: Never Smokeless Tobacco: Never Alcohol Use Standard Drinks/Week Comments Never 0 (1 standard drink = 0.6 oz pur e alcohol) Comments No Sex and Gender Information Value Date Recorded Sex Assigned at Female 11/09/2024 9:17 AM WAREHOUSE TRAINER Legal Sex Female 6:38 PM CDT Gender Identity Female 11/09/2024 9:17 AM WAREHOUSE TRAINER Sexual Orientation Lesbian or Claros 11/09/2024 9: 17 AM WAREHOUSE TRAINER documented as of this encounter Plan of Treatment Upcoming Encounters Date Type Department Care Team (Late st Contact Info) Description 06/09/2025 8:00 AM CDT [facility] [address] [place] [address] Mounika Hurtado, SUPERVISOR CABINETMAKER [address] [facility] [address] [place] [address] 06/09/2025 8:30 AM CDT Office Visit [facility] Medical Group Multispecialty Care - [place] [address] [place] [address] Mounika Hurtado, CALIN [address] [place] [address] documented as of this encounter Visit Diagnoses Not on filedocumented in this encounter Care Teams Ceramic Painter Relationship Specialty Start Date End Date Mounika Hurtado SUPERVISOR CABINETMAKER [address] [place] [address] PCP - General NURSE PRACTITIONER 08/03/24 documented as of this encounter
--- OUTSIDE RECORDS SUMMARY | 2025-05-03 06:16 | XMS_ITS | Clinical Summary ---
Author Organization [facility] Address [address] [place] [address] Care Team Providers Care Plastic Tile Setter Name Role Phone Mounika Hurtado ARCH SUPPORT MAKER Primary Care Provider [phone] Allergies Active Allergy Reactions Criticality Noted Date Comments Bacitracin-Polymyxin B Hives 09/09/2024 Penicillins Anaphylaxis,Blurred vision,Swelling,Eyes Water & Itch High 10/29/2011 Eyes swelled shut by the end of the day Eyes swelled shut by the end of the day Oseltamivir Hallucinations 11/23/2024 Medications vitamin D3, cholecalciferol, 25 mcg capsule Take 1 capsule (1,000 Units total) by mouth daily. Active vitamin C (ASCORBIC ACID) 500 MG tablet Take 1 tablet (500 mg total) by mouth daily. Active diphenhydrAMINE-A PAP (TYLENOL PM) 25-500 MG Tab tablet Take 1 tablet by mouth. Active XIIDRA 5 % ophthalmic solution Place 1 drop into both eyes 2 (two) times daily. Active azelastine 0.1 % nasal sprayIndications: Sinus drainage 2 sprays by Nasal route 2 (two) times daily as needed for Rhinitis. Use in each nostril as directed 10 mL 3 10/07/19 25 Active ezetimibe (ZETIA) 10 MG tabletIndications :Mixed hyperlipidemia Take 1 tablet (10 mg total) by mouth daily. 90 tablet 1 10/21/19 25 Active losartan (COZAAR) 100 MG tabletIndications :Primary hypertension Take 1 tablet (100 mg total) by mouth daily. 90 tablet 1 01/22/20 25 Active SYNTHROID 150 MCG tabletIndications :Hypothyroidism, unspecified type TAKE 1 TABLET(150 MCG) BY MOUTH EVERY MORNING 90 tablet 1 04/13/20 25 Active tirzepatide (ZEPBOUND) 2.5 MG/0.5ML injectionIndicati ons:Weight Loss Inject 2.5 mg into the skin once a week. Indications : Weight Loss Increase to 5mg weekly after 4 weeks. 2 mL 1 04/14/20 25 Active ondansetron (ZOFRAN-ODT) 4 MG disintegrating tabletIndications :Class 2 severe obesity with serious comorbidity and body mass index (BMI) of 35.0 to 35.9 in adult, unspecified obesity type (CMS/HCC) Take 1 tablet (4 mg total) by mouth every 6 (six) hours as needed for Nausea. 30 tablet 2 04/14/20 25 Active amLODIPine (NORVASC) 10 MG tabletIndications :Benign essential hypertension Take 1 tablet (10 mg total) by mouth daily. 04/14/20 25 Active SYNTHROID 150 MCG tabletIndications :Hypothyroidism, unspecified type Take 1 tablet (150 mcg total) by mouth every morning. 90 tablet 1 10/21/19 25 025 Discontinued albuterol sulfate HFA 108 (90 Base) MCG/ACT inhalerIndication s:Wheezing Inhale 2 puffs into the lungs every 6 (six) hours as needed for Wheezing. 18 g 1 11/09/19 25 025 Discontinued amLODIPine (NORVASC) 10 MG tabletIndications :Benign essential hypertension Take 0.5 tablets (5 mg total) by mouth daily. 01/12/20 25 025 Discontinued tirzepatide (ZEPBOUND) 2.5 MG/0.5ML injectionIndicati ons:Weight Loss Inject 2.5 mg into the skin once a week. Indications : Weight Loss 2 mL 2 03/01/20 25 025 Discontinued(R eorder) Active Problems Problem Noted Date Diagnosed Date Frequent falls 11/23/2024 Benign essential hypertension 09/09/2024 Hypothyroidism, unspecified type 09/09/2024 History of bilateral knee replacement 09/09/2024 Family history of breast cancer 09/09/2024 Sjogren's syndrome, with uns pecified organ involvement (HHS/HCC) 09/09/2024 ALEXI (obstructive sleep apnea) 09/09/2024 Prediabetes 09/09/2024 Pain in finger of left hand 09/09/2024 Pain in finger of right hand 09/09/2024 Osteopenia, unspecified location 09/09/2024 Other specified disorders of bone density and structure, multiple sites 09/09/2024 Resolved Problems Problem Noted Date Diagnosed Date Resolved Date Blepharitis of eyelid of left eye 11/23/2024 01/11/2025 Medication adverse effect 11/23/2024 Neck pain on left side 11/23/202401/11 Encounters Date Type Department Care Team Description 04/29/[address] [facility] [address] [place] [address] Mounika Hurtado, ARCH SUPPORT MAKER Ordering next round of Zepbound 04/15/2025 [facility] [address] [place] [address] Mounika Hurtado, ARCH SUPPORT MAKER Disposal of Zepbound equipment 04/14/2025 2:00 PM CDT [facility] [address] [place] [address] Mounika Hurtado, ARCH SUPPORT MAKER Medication Check (Wants to discuss weight loss medication) 04/14/2025 Travel 04/01/2025 [facility] [address] [place] [address] Amaury, [facility] Provider results 03/30/2025 [facility]phone [facility] [address] [place] [address] Mounika Hurtado, ARCH SUPPORT MAKER Orders 03/17/2025 [facility] [address] [place] [address] Mounika Hurtado, ARCH SUPPORT MAKER Weight loss medication 03/17/2025 MyChart [facility] [place] [address] [place] [address] Amaury, [facility] Provider Zepbound 02/23/2025 MyChart [facility] - [place] [address] [place] [address] Mounika Hutrado, ARCH SUPPORT MAKER Another thing 02/23/2025 [facility]Chart [facility] - [place] [address] [place] [address] Mounika Hurtado, ARCH SUPPORT MAKER Blood Pressure meds 02/02/2025 Misc Documentation [facility] - [place] [address] [place] [address] Mounika Hurtado, ARCH SUPPORT MAKER 02/02/2025 MyChart Message [facility] - [place] [address] [place] [address] Mounika Hurtado, ARCH SUPPORT MAKER Blood Pressure from Last 3 Months Immunizations Immunization Administration Dates Next Due FLUAD (IIV, Trivalent, 0.5 M L Pre-filled Syringe) 07/08/2017 Fluzone High Dose (IIV, triv alent, 0.5mL) 06/24/2024,07/22/2019,07/24/2018,2015,07/02/2016,07/04/2015 Fluzone High Dose - >Age 65 (Prefilled Syringe) 07/22/2023,06/26/2022,05/31/2021,2019 PFIZER COVID-19 (12+) MRNA, LNP-S, PF, RAHUL-SUCROSE, 30 MCG/0.3 ML (COMIRNATY) 03/23/2024 Pneumococcal (Pneumovax 23) 05/31/2021 Pneumococcal (Prevnar 20) 07/27/2024 Shingrix 05/22/2023,01/25/2023 Td (TDVAX) 07/31/2006 Tdap (Adacel) 09/09/2024 Family History Medical History Relation Comments Arthritis Father Stroke Father Breast cancer ([facility]/HCC) Mother lumpectomy Hypertension Mother Relation Status Comments Father Mother Social History Tobacco Use Types Packs/Day Years Used Date Smoking Tobacco: Never Passive Smoke Exposure: Never Smokeless Tobacco: Never Tobacco Cessation:Counseling Given: No Alcohol Use Standard Drinks/Week Comments Never 0 (1 standard drink = 0.6 oz pur e alcohol) PHQ-2 Answer Date Recorded Patient Health Questionnaire-2 Score 0 01/28/2025 Comments No Sex and Gender Information Value Date Recorded Sex Assigned at Female 11/09/2024 9:17 AM MECHANICAL DEVELOPMENT ENGINEER Legal Sex Female 6:38 PM CDT Gender Identity Female 11/09/2024 9:17 AM MECHANICAL DEVELOPMENT ENGINEER Sexual Orientation Lesbian or Claros 11/09/2024 9: 17 AM MECHANICAL DEVELOPMENT ENGINEER Last Filed Vital Signs Vital Sign Reading Time Taken Comments Blood Pressure 135/81 04/14/2025 1:55 PM CDT Pulse 83 04/14/2025 1:55 PM CDT Temperature 36.6 C (97.8 F) 04/14/2025 1:55 PM CDT Respiratory Rate 18 04/14/2025 1:55 PM CDT Oxygen Saturation 96% 04/14/2025 1:55 PM CDT Inhaled Oxygen Concentration - - Weight 89 kg (196 lb 3.2 oz) 04/14/2025 1:55 PM CDT Height 157.5 cm (5' 2) 04/14/2025 1:55 PM CDT Body Mass Index 35.89 04/14/2025 1:55 PM CDT Plan of Treatment Upcoming Encounters Date Type Department Care Team (Late st Contact Info) Description 06/09/2025 8:00 AM CDT [facility] [place] [address] [place] [address] Mounika Hurtado NP [address] [place] [address] 06/09/2025 8:30 AM CDT [facility] - [place] [address] [place] [address] Mounika Hurtado, ARCH SUPPORT MAKER [address] [place] [address] Health Maintenance Due Date Last Done Comments Annual Medicare Wellness Visit 2013 RSV Immunization or 60+ Years (1 - 1-dose 75+ series) 2023 COVID-19 Vaccine ( season) 2024 06/24/2024, 03/23/2024, 09/03/2023, Additional history exists DTaP, Tdap and Td Vaccines (2 - Td or Tdap) 09/09/2034 09/09/2024, 07/31/2006 Zoster Vaccines Completed 05/22/2023, 01/25/2023 Pneumococcal Vaccine: 50+ Years Completed 07/27/2024, 05/31/2021 Hepatitis C Completed 01/11/2025 PHQ-2 (Physician [place]) Completed 01/28/2025 Dexa Scan (General) Completed 03/30/2025 Meningococcal B Vaccine Aged Out No l onger eligible based on patient's age to complete this topic Meningococcal Vaccine Aged Out No [place] eligible based on patient's age to complete this topic RSV Immunizations Under 20 Months Aged Out No longer eligible based on patient's age to complete this topic Procedures Procedure Name Priority Date/Time Associated Diagnosis Comments BONE DENSITY/DEXA Routine 03/30/2025 12: 00 AM CDT Other specified disorders of bone density and structure, multiple sites HEPATITIS C ANTIBODY Routine 01/11/2025 11:06 AM CDT Need for hepatitis C screening test from Last 3 Months or Most Recently Relevant to Health Maintenance Results * BONE DENSITY/DEXA (03/30/2025 12:00 AM CDT) Anatomical Region Laterality Modality Bone Bone Density 03/30/2025 us Mounika Hurtado NP DEXA Final Resul t * HEPATITIS C ANTIBODY (01/11/2025 11:06 AM CDT) HEPATITIS C AB NON-REACTI VE NON-REACT MARIUM 01/11/2025 9:51 PM CDT [facility] Comment: ANTIBODIES TO HCV NOT DETECTED. DOES NOT EXCLUDE THE POSSIBILITY OF EXPOSURE TO HCV. 01/11/2025 11:0 6 AM CDT Mounika Hurtado NP LABORATORY Final Resul t [facility] [address] [place] [address], [place] [phone] [id number] from Last 3 Months or Most Recently Relevant to Health Maintenance Insurance [employer] Care Teams Plastic Tile Setter Relationship Specialty Start Date End Date Mounika Hurtado NP [address] [place] [address] PCP - General NURSE PRACTITIONER 08/03/24
--- OUTSIDE RECORDS SUMMARY | 2025-05-03 06:16 | XMS_ITS | Encounter Summary ---
Author Organization [facility] Address Formerly [facility], [facility] [place] [address] Care Team Providers Care Commercial Finance Manager Name Role Phone Mounika Hurtado DIRECTOR OF CLOUD SERVICES Primary Care Provider [phone] Encounter Details Date Type Department Care Team (Latest Contact Info) Description 04/29/2025 Phoenix Technologiest Message Enc [facility] [place] [address] [place] [address] Mounika Hurtado, DIRECTOR OF CLOUD SERVICES [address] [place] [address] Ordering next round of Zepbound Social History Tobacco Use Types Packs/Day Years Used Date Smoking Tobacco: Never Passive Smoke Exposure: Never Smokeless Tobacco: Never Alcohol Use Standard Drinks/Week Comments Never 0 (1 standard drink = 0.6 oz pur e alcohol) PHQ-2 Answer Date Recorded Patient Health Questionnaire-2 Score 0 01/28/2025 Comments No Sex and Gender Information Value Date Recorded Sex Assigned at Female 11/09/2024 9:17 AM VICE PRESIDENT RISK MANAGEMENT Legal Sex Female 6:38 PM CDT Gender Identity Female 11/09/2024 9:17 AM VICE PRESIDENT RISK MANAGEMENT Sexual Orientation Lesbian or Claros 11/09/2024 9: 17 AM VICE PRESIDENT RISK MANAGEMENT documented as of this encounter Plan of Treatment Upcoming Encounters Date Type Department Care Team (Late st Contact Info) Description 06/09/2025 8:00 AM CDT [facility] [place] [address] [place] [address] Mounika Hurtado NP [address] [place] [address] 06/09/2025 8:30 AM CDT Office Visit [facility] Medical [facility] - [place] [address] [place] [address] Mounika Hurtado NP [address] [facility] [address] [place] [address] documented as of this encounter Visit Diagnoses Not on filedocumented in this encounter Care Teams Commercial Finance Manager Relationship Specialty Start Date End Date Mounika Hurtado NP [address] [place] [address] PCP - General NURSE PRACTITIONER 08/03/24 documented as of this encounter
--- OUTSIDE RECORDS SUMMARY | 2025-05-03 06:16 | XMS_ITS | Clinical Summary ---
Author Organization [facility] Address [address] [facility] [place] [address] Care Team Providers Care Burlap Roll Coverer Name Role Phone Douglas Whalen MD Unavailable [phone] Isabelle Gonzales MD Primary Care Provider [phone] Source Comments [facility],non-owned Affiliates and Associated Physician Practices is amultiple site organization consisting of ambulatory clinics and hospital sitesin [place], [place], [place] and [place]. This disclosure is being madepursuant to the Care Everywhere program and may not contain all information available regarding this patient. Last updated 18.[facility] Allergies Active Allergy Reactions Criticality Noted Date Comments Pxjivmrr-Opbyfwdifq-Mqrjonco n Unknown 06/05/2018 Penicillins Swelling Medium 10/29/2011 [...] Sex Assigned at Female 09/06/2021 10:31 AM RUBBER EXTRUSION MACHINE OPERATOR Legal Sex Female 1:04 PM RUBBER EXTRUSION MACHINE OPERATOR Gender Identity Female 09/06/2021 10:31 AM RUBBER EXTRUSION MACHINE OPERATOR Sexual Orientation Lesbian 09/06/2021 10 :31 AM RUBBER EXTRUSION MACHINE OPERATOR Last Filed Vital Signs Vital Sign Reading Time Taken Comments Blood Pressure 110/79 08/16/2022 9:35 AM RUBBER EXTRUSION MACHINE OPERATOR Pulse 71 08/16/2022 9:40 AM RUBBER EXTRUSION MACHINE OPERATOR Temperature 36.2 C (97.2 F) 08/16/2022 8:57 AM RUBBER EXTRUSION MACHINE OPERATOR Respiratory Rate 21 08/16/2022 9:40 AM RUBBER EXTRUSION MACHINE OPERATOR Oxygen Saturation 98% 08/16/2022 9:40 AM RUBBER EXTRUSION MACHINE OPERATOR Inhaled Oxygen Concentration - - Weight [...] MEDICARE AWV CALENDAR YEAR 2024 INFLUENZA VACCINE (#1) 2025 , 06/02/2020, 07/08/2017 HEPATITIS B VACCINE Aged Out [...] this topic Medical Devices Implanted Type Area Passenger Tire Builder Device Identifier Shelf Expiration Date Model / Serial / Lot [place] Sut Swvlck Kntls 4.75mm Fibertape Implanted:Qty: 1 on 08/16/2022 by Talita Andino MD at [facility] Right: Shoulder [employer] 06/29/[id number] / / [id number] Insurance AETNA MEDICARE ADV [facility] MANAGED MEDICARE ADV Advance Directives Documents on File Type Date Recorded Patient Economic Forecaster Expl anation Adv Directive/Living Will/POA 12/16/2011 10:10 AM Adv Directive/Living Will/POA 11/15/2011 2:38 PM * FULL RESUSCITATION (Latest Code Status on File) Date Activated Date Inactivated Comments 07/09/2012 11:09 AM 07/12/2012 12:29 PM * FULL RESUSCITATION Date Activated Date Inactivated Comments 12/12/2011 12:01 PM 12/16/2011 1:38 AM Care Teams Burlap Roll Coverer Relationship Specialty Start Date End Date Isabelle Gonzales MD [address] [place] [address] PCP - General Internal Medicine 07/31/22 Douglas Whalne MD Orthopedic Surgery 12/28/11
--- OUTSIDE RECORDS SUMMARY | 2025-05-03 06:16 | XMS_ITS | Patient Health Record ---
Author Organization [employer] [facility] Address [address] [facility] [address] [place], [place] [address] Care Team Providers Care Wire Stitcher Machine Name Role Phone BOOGIE ASIF DMD Primary Care Provider Elissamelquiades harryjessi Maria EKrish Unavailable [phone] ALLERGIES Allergen (clinical drug ingredient) Drug/Non Drug Allergy documented on EMR Reaction Allergy Type Onset Date Status penicillin eyes swell shut Drug Allergy Active bacitracin / neomycin / polymyxin B Neosporin hives Drug Allergy Active REASON FOR [...] Notes Problem Dry eye (H04.129) Active confirmed 284902234 Problem Hypothyroidism, unspecified type (E03.9) Active confirmed 66289775 Problem Dry mouth (R68.2) Active confirmed 85458945 Problem Oral ulcer (K12.1) Active confirmed 96727065 Problem Sjogren's syndrome with tubulo-intersti tial nephropathy (M35.04) Active confirmed [id number] PLAN OF TREATMENT Pending Test Test Name Order Date Eye exam - Plaquenil 12/14/2021 Insurance Providers Payer Name Payer Address Payer Phone Subscriber Number Group Number Insured Name Patient Relationship to Insured Coverage Start Date Coverage End Date [facility] Advantage PPO [address] [address] [place] [address] [id number] Terry Bowden Self - patient is the insured 1 MEDICARE [address] [address] [place] [address] [id number] Kal Terry Self - patient is the insured 3 MEDICAL (GENERAL) HISTORY Medical History History ICD Code Ringing in ears thyroid disease irregular heart beat lump in breast high blood pressure gallstones Surgical History Surgery Date(Month/Year) appendectomy 1958 lumpectomy 1983 gallbladder surgery 2001 wrist surgery rt 2004 lt wrist surgery 04,05 lt knee arthroscopic surgery 2008 lt knee replacement 2008 rt knee replacement 2011 cataract surgeries 2018 lump removal 2019 fatty growth on back 2019 Hospitalization History Reason Date(Month/Year) foot issues 20,21 sleep study 2003 gave 1971
--- OUTSIDE RECORDS SUMMARY | 2025-05-03 06:16 | XMS_ITS | Encounter Summary ---
Author Organization [facility] Address [facility] [place] [address] Care Team Providers Care Chief Knowledge Officer Name Role Phone Mounika Hurtado MEDICAL CSR Primary Care Provider [phone] Encounter Details Date Type Department Care Team (Latest Contact Info) Description 09/17/2024 Noosht Message Enc [place] [address] [place] [address] Mounika Hurtado, MEDICAL CSR [address] [facility] [address] [place] [address] AHopkins Foot Injection 09/17/24 Social History Tobacco Use Types Packs/Day Years Used Date Smoking Tobacco: Never Passive Smoke Exposure: Never Smokeless Tobacco: Never Alcohol Use Standard Drinks/Week Comments Never 0 (1 standard drink = 0.6 oz pur e alcohol) Comments No Sex and Gender Information Value Date Recorded Sex Assigned at Female 11/09/2024 9:17 AM HOLTER SCANNING TECHNICIAN Legal Sex Female 6:38 PM CDT Gender Identity Female 11/09/2024 9:17 AM HOLTER SCANNING TECHNICIAN Sexual Orientation Lesbian or Claros 11/09/2024 9: 17 AM HOLTER SCANNING TECHNICIAN documented as of this encounter Plan of Treatment Upcoming Encounters Date Type Department Care Team (Late st Contact Info) Description 06/09/2025 8:00 AM CDT [facility] [address] [place] [address] Mounika Hurtado, CALIN [address] [place] [address] 06/09/2025 8:30 AM CDT Office Visit [facility] Medical Group [facility] - [place] [address] [place] [address] Mounika Hurtado MEDICAL CSR [address] [facility] [address] [place] [address] documented as of this encounter Visit Diagnoses Not on filedocumented in this encounter Care Teams Chief Knowledge Officer Relationship Specialty Start Date End Date Mounika Hurtado NP [address] [facility] [address] [place] [address] PCP - General NURSE PRACTITIONER 08/03/24 documented as of this encounter
--- OUTSIDE RECORDS SUMMARY | 2025-05-03 06:16 | XMS_ITS | Encounter Summary ---
Author Organization [facility] Address Formerly [facility] [place] [address] Care Team Providers Care Cash Management Associate Name Role Phone Mounika Hurtado MISSION COORDINATOR Primary Care Provider [phone] Encounter Details Date Type Department Care Team (Latest Contact Info) Description 02/23/2025 Cyber Kiosk Solutionst Message Enc [facility] Medical [facility] Multispecialty [facility] [place] [address] [place] [address] Mounika Hurtado NP [address] [place] [address] Blood Pressure meds Social History Tobacco Use Types Packs/Day Years Used Date Smoking Tobacco: Never Passive Smoke Exposure: Never Smokeless Tobacco: Never Alcohol Use Standard Drinks/Week Comments Never 0 (1 standard drink = 0.6 oz pur e alcohol) PHQ-2 Answer Date Recorded Patient Health Questionnaire-2 Score 0 01/28/2025 Comments No Sex and Gender Information Value Date Recorded Sex Assigned at Female 11/09/2024 9:17 AM CUTTING MACHINE OPERATOR HELPER Legal Sex Female 6:38 PM CDT Gender Identity Female 11/09/2024 9:17 AM CUTTING MACHINE OPERATOR HELPER Sexual Orientation Lesbian or Claros 11/09/2024 9: 17 AM CUTTING MACHINE OPERATOR HELPER documented as of this encounter Plan of Treatment Upcoming Encounters Date Type Department Care Team (Late st Contact Info) Description 06/09/2025 8:00 AM CDT Office Visit [facility] Multispecialty [facility] [facility] [place] [address] [place] [address] GenesisMounika reyes NP [address] [place] [address] 06/09/2025 8:30 AM CDT Office Visit [facility] Medical Group Mult[facility]ty [facility] - [place] [address] [place] [address] Mounika Hurtado NP [address] [facility] [address] [place] [address] documented as of this encounter Visit Diagnoses Not on filedocumented in this encounter Care Teams Cash Management Associate Relationship Specialty Start Date End Date Mounika Hurtado NP [address] [facility] [address] [place] [address] PCP - General NURSE PRACTITIONER 08/03/24 documented as of this encounter
--- OUTSIDE RECORDS SUMMARY | 2025-05-03 06:16 | XMS_ITS | Encounter Summary ---
Author Organization [facility] Address [facility] [place] [address] Care Team Providers Care Field Crop Ii Farmworker Name Role Phone Mounika Hurtado GLASS BENDER Primary Care Provider [phone] Encounter Details Date Type Department Care Team (Latest Contact Info) Description 04/15/2025 Floop Technologiest Message Enc [facility] [place] [address] [place] [address] Mounika Hurtado NP [address] [place] [address] Disposal of Zepbound equipment Social History Tobacco Use Types Packs/Day Years Used Date Smoking Tobacco: Never Passive Smoke Exposure: Never Smokeless Tobacco: Never Alcohol Use Standard Drinks/Week Comments Never 0 (1 standard drink = 0.6 oz pur e alcohol) PHQ-2 Answer Date Recorded Patient Health Questionnaire-2 Score 0 01/28/2025 Comments No Sex and Gender Information Value Date Recorded Sex Assigned at Female 11/09/2024 9:17 AM CHINCHILLA MACHINE OPERATOR Legal Sex Female 6:38 PM CDT Gender Identity Female 11/09/2024 9:17 AM CHINCHILLA MACHINE OPERATOR Sexual Orientation Lesbian or Claros 11/09/2024 9: 17 AM CHINCHILLA MACHINE OPERATOR documented as of this encounter Plan of Treatment Upcoming Encounters Date Type Department Care Team (Late st Contact Info) Description 06/09/2025 8:00 AM CDT [facility] [place] [address] [place] [address] Mounika Hurtado NP [address] [place] [address] 06/09/2025 8:30 AM CDT Office Visit [facility] Medical Group Mult[facility]pecialty Care - [place] [address] [place] [address] Mounika Hurtado NP [address] [facility] [address] [place] [address] documented as of this encounter Visit Diagnoses Not on filedocumented in this encounter Care Teams Field Crop Ii Farmworker Relationship Specialty Start Date End Date Mounika Hurtado NP [address] [place] [address] PCP - General NURSE PRACTITIONER 08/03/24 documented as of this encounter
--- OUTSIDE RECORDS SUMMARY | 2025-05-03 06:16 | XMS_ITS | Clinical Summary ---
Author Organization [facility] Address [address] [place] [address] Phone Care Team Providers Care Molding Machine Operator Helper Name Role Phone Unavailable Primary Care Provider Unavailabl e Social History Tobacco Use Types Packs/Day Years Used Date Smoking Tobacco: Never Assessed Comments Unknown Sex and Gender Information Value Date Recorded Sex Assigned at Not on file Legal Sex Female 12:09 PM FIRE CLAIMS ADJUSTER Gender Identity Not on file Sexual Orientation Not on file Plan of Treatment Health Maintenance Due Date Last Done Comments DTAP/TDAP/TD VACCINES (1 - Tdap) 1967 PNEUMOCOCCAL VACCINE 50+ YEARS (1 of 1 - PCV) 04/04/19 98 ZOSTER VACCINE (1 of 2) 1998 OSTEOPOROSIS SCREENING 2013 RSV VACCINE (60+ or ) (1 - 1-dose 75+ series) 2023 INFLUENZA VACCINE (#1) 2025 Insurance [facility] [id number]
--- OUTSIDE RECORDS SUMMARY | 2025-05-03 06:16 | XMS_ITS | Encounter Summary ---
Author Organization [facility] Address [facility] [place] [address] Care Team Providers Care Poultry Vaccinator Name Role Phone Mounika Hurtado CASING COOKER Primary Care Provider [phone] Encounter Details Date Type Department Care Team (Latest Contact Info) Description 11/09/2024 Oktalogict Message Enc [facility] [place] [address] [place], [place] [address] Mounika Hurtado, CASING COOKER [address] [place], [place] [address] No Tamiflu available??? Social History Tobacco Use Types Packs/Day Years Used Date Smoking Tobacco: Never Passive Smoke Exposure: Never Smokeless Tobacco: Never Alcohol Use Standard Drinks/Week Comments Never 0 (1 standard drink = 0.6 oz pur e alcohol) Comments No Sex and Gender Information Value Date Recorded Sex Assigned at Female 11/09/2024 9:17 AM SEAT SCOOPER MACHINE Legal Sex Female 6:38 PM CDT Gender Identity Female 11/09/2024 9:17 AM SEAT SCOOPER MACHINE Sexual Orientation Lesbian or Claros 11/09/2024 9: 17 AM SEAT SCOOPER MACHINE documented as of this encounter Plan of Treatment Upcoming Encounters Date Type Department Care Team (Late st Contact Info) Description 06/09/2025 8:00 AM CDT [facility] [place] [address] [place], [place] [address] Mounika Hurtado, CALIN [address] [facility] [address] [place] [address] 06/09/2025 8:30 AM CDT Office Visit [facility] Medical Group Multispecialty Care - [place] [address] [place] [address] Mounika Hurtado NP [address] [facility] [address] [place] [address] documented as of this encounter Visit Diagnoses Not on filedocumented in this encounter Care Teams Poultry Vaccinator Relationship Specialty Start Date End Date Mounika Hurtado NP [address] [facility] [address] [place] [address] PCP - General NURSE PRACTITIONER 08/03/24 documented as of this encounter
--- OUTSIDE RECORDS SUMMARY | 2025-05-03 06:16 | XMS_ITS | Encounter Summary ---
Author Organization [facility] Address [facility] [place] [address] Care Team Providers Care Sleeper Cutter Name Role Phone Mounika Hurtado SANITATION WORKER CLEANING EQUIPMENT Primary Care Provider [phone] Encounter Details Date Type Department Care Team (Latest Contact Info) Description 10/21/2024 CloudEnduret Message Enc [place] [address] [place] [address] Mounika Hurtado, SANITATION WORKER CLEANING EQUIPMENT [address] [facility] [address] [place], [place] [address] Visit with Dr. Artem Mai Social History Tobacco Use Types Packs/Day Years Used Date Smoking Tobacco: Never Passive Smoke Exposure: Never Smokeless Tobacco: Never Alcohol Use Standard Drinks/Week Comments Never 0 (1 standard drink = 0.6 oz pur e alcohol) Comments No Sex and Gender Information Value Date Recorded Sex Assigned at Female 11/09/2024 9:17 AM DIRECTOR OF CORPORATE SALES Legal Sex Female 6:38 PM CDT Gender Identity Female 11/09/2024 9:17 AM DIRECTOR OF CORPORATE SALES Sexual Orientation Lesbian or Claros 11/09/2024 9: 17 AM DIRECTOR OF CORPORATE SALES documented as of this encounter Plan of Treatment Upcoming Encounters Date Type Department Care Team (Late st Contact Info) Description 06/09/2025 8:00 AM CDT [facility] [address] [place] [address] Mounika Hurtado, CALIN [address] [facility] [address] [place] [address] 06/09/2025 8:30 AM CDT Office Visit [facility] Medical [facility] Mult[facility] Care - [place] [address] [place] [address] Mounika Hurtado SANITATION WORKER CLEANING EQUIPMENT [address] [facility] [address] [place] [address] documented as of this encounter Visit Diagnoses Not on filedocumented in this encounter Care Teams Sleeper Cutter Relationship Specialty Start Date End Date Mounika Hurtado NP [address] [facility] [address] [place] [address] PCP - General NURSE PRACTITIONER 08/03/24 documented as of this encounter
--- OUTSIDE RECORDS SUMMARY | 2025-05-03 06:16 | XMS_ITS | Encounter Summary ---
Author Organization [facility] Address [facility] [place] [address] Care Team Providers Care Construction Electrician Name Role Phone Mounika Hurtado PLAYERS ASSISTANT Primary Care Provider [phone] Encounter Details Date Type Department Care Team (Late Contact Info) Description 03/17/2025 Trapmine Message Enc [facility] Medical [facility] [place] [address] [facility] [address] [place] [address] Amaury, [facility] Provider Zepbound Social History Tobacco Use Types Packs/Day Years Used Date Smoking Tobacco: Never Passive Smoke Exposure: Never Smokeless Tobacco: Never Alcohol Use Standard Drinks/Week Comments Never 0 (1 standard drink = 0.6 oz pur e alcohol) PHQ-2 Answer Date Recorded Patient Health Questionnaire-2 Score 0 01/28/2025 Comments No Sex and Gender Information Value Date Recorded Sex Assigned at Female 11/09/2024 9:17 AM EXPERIENCED TRUCK DRIVER Legal Sex Female 6:38 PM CDT Gender Identity Female 11/09/2024 9:17 AM EXPERIENCED TRUCK DRIVER Sexual Orientation Lesbian or Claros 11/09/2024 9: 17 AM EXPERIENCED TRUCK DRIVER documented as of this encounter Plan of Treatment Upcoming Encounters Date Type Department Care Team (Late Contact Info) Description 06/09/2025 8:00 AM CDT [facility] [place] [address] [place] [address] Mounika Hurtado NP [address] [facility] [address] [place] [address] 06/09/2025 8:30 AM CDT Office Visit [facility] Medical Group Mult[facility]pecialty Care - [place] [address] [place] [address] Mounika Hurtado, PLAYERS ASSISTANT [address] [facility] [address] [place] [address] documented as of this encounter Visit Diagnoses Not on filedocumented in this encounter Care Teams Construction Electrician Relationship Specialty Start Date End Date Mounika Hurtado NP [address] [facility] [address] [place] [address] PCP - General NURSE PRACTITIONER 08/03/24 documented as of this encounter
--- OUTSIDE RECORDS SUMMARY | 2025-05-03 06:16 | XMS_ITS | Encounter Summary ---
Author Organization [facility] Address [facility] [place] [address] Care Team Providers Care Filbert Grower Name Role Phone Mounika Hurtado UNDERGROUND HEAVY EQUIPMENT OPERATOR Primary Care Provider [phone] Encounter Details Date Type Department Care Team (Latest Contact Info) Description 03/17/2025 Pure life renalt Message Enc [facility] Medical [facility] Multispecialty Care [place] [address] [place] [address] Mounika Hurtado NP [address] [place] [address] Weight loss medication Social History Tobacco Use Types Packs/Day Years Used Date Smoking Tobacco: Never Passive Smoke Exposure: Never Smokeless Tobacco: Never Alcohol Use Standard Drinks/Week Comments Never 0 (1 standard drink = 0.6 oz pur e alcohol) PHQ-2 Answer Date Recorded Patient Health Questionnaire-2 Score 0 01/28/2025 Comments No Sex and Gender Information Value Date Recorded Sex Assigned at Female 11/09/2024 9:17 AM UNIVERSITY INTERNSHIP Legal Sex Female 6:38 PM CDT Gender Identity Female 11/09/2024 9:17 AM UNIVERSITY INTERNSHIP Sexual Orientation Lesbian or Claros 11/09/2024 9: 17 AM UNIVERSITY INTERNSHIP documented as of this encounter Plan of Treatment Upcoming Encounters Date Type Department Care Team (Late st Contact Info) Description 06/09/2025 8:00 AM CDT Office Visit [facility] Medical [facility] Multispecialty Care [place] [address] [place] [address] Mounika Hurtado, CALIN [address] [place] [address] 06/09/2025 8:30 AM CDT Office Visit [facility] Medical Group Mult[facility] [place] [address] [place] [address] Mounika Hurtado NP [address] [facility] [address] [place] [address] documented as of this encounter Visit Diagnoses Not on filedocumented in this encounter Care Teams Filbert Grower Relationship Specialty Start Date End Date Mounika Hurtado NP [address] [facility] [address] [place] [address] PCP - General NURSE PRACTITIONER 08/03/24 documented as of this encounter
--- OUTSIDE RECORDS SUMMARY | 2025-05-03 06:16 | XMS_ITS | Encounter Summary ---
Author Organization [facility] Address [facility] [place] [address] Care Team Providers Care Hedis Specialist Name Role Phone Mounika Hurtado NP Primary Care Provider [phone] Reason for Visit * Reason Onset Date Comments Results 04/01/2025 Bone density Encounter Details Date Type Department Care Team (Late st Contact Info) Description 04/01/2025 Nitro Message Enc [address] [place] [address] [facility] Provider results Social History Tobacco Use Types Packs/Day Years Used Date Smoking Tobacco: Never Passive Smoke Exposure: Never Smokeless Tobacco: Never Alcohol Use Standard Drinks/Week Comments Never 0 (1 standard drink = 0.6 oz pur e alcohol) PHQ-2 Answer Date Recorded Patient Health Questionnaire-2 Score 0 01/28/2025 Comments No Sex and Gender Information Value Date Recorded Sex Assigned at Female 11/09/2024 9:17 AM CHAIR LIFT OPERATOR Legal Sex Female 6:38 PM CDT Gender Identity Female 11/09/2024 9:17 AM CHAIR LIFT OPERATOR Sexual Orientation Lesbian or Claros 11/09/2024 9: 17 AM CHAIR LIFT OPERATOR documented as of this encounter Plan of Treatment Upcoming Encounters Date Type Department Care Team (Late st Contact Info) Description 06/09/2025 8:00 AM CDT Office Visit [place] [address] [facility] [address] [place] [address] Mounika Hurtado, CIGAR TOBACCO PROCESSING SUPERVISOR [address] [place] [address] 06/09/2025 8:30 AM CDT Office Visit [facility] [place] [address] [place] [address] Mounika Hurtado, CIGAR TOBACCO PROCESSING SUPERVISOR [address] [facility] [address] [place] [address] documented as of this encounter Visit Diagnoses Not on filedocumented in this encounter Care Teams Hedis Specialist Relationship Specialty Start Date End Date Mounika Hurtado, CIGAR TOBACCO PROCESSING SUPERVISOR [address] [place] [address] PCP - General NURSE PRACTITIONER 08/03/24 documented as of this encounter
[2025-05-03 06:21] VITALS: BP 128/93; PULSE 70; RESP 18; TEMP 36.4; O2SAT 96
[2025-05-03 06:35] VITALS: BP 116/80; PULSE 94; RESP 19; O2SAT 98
--- OUTSIDE RECORDS SUMMARY | 2025-05-03 07:18 | XMS_ITS | Encounter Summary ---
Author Organization [facility] Address [facility] [place] [address] Care Team Providers Care Pin Machine Operator Name Role Phone Mounika Hurtado LOOP DRIER OPERATOR Primary Care Provider [phone] Encounter Details Date Type Department Care Team (Late st Contact Info) Description 02/23/2025 MyChart Message Enc [facility] Medical [facility] [place] [address] [place] [address] Mounika Hurtado NP [address] [place] [address] Another thing Social History Tobacco Use Types Packs/Day Years Used Date Smoking Tobacco: Never Passive Smoke Exposure: Never Smokeless Tobacco: Never Alcohol Use Standard Drinks/Week Comments Never 0 (1 standard drink = 0.6 oz pur e alcohol) PHQ-2 Answer Date Recorded Patient Health Questionnaire-2 Score 0 01/28/2025 Comments No Sex and Gender Information Value Date Recorded Sex Assigned at Female 11/09/2024 9:17 AM CASTING ASSOCIATE Legal Sex Female 6:38 PM CDT Gender Identity Female 11/09/2024 9:17 AM CASTING ASSOCIATE Sexual Orientation Lesbian or Claros 11/09/2024 9: 17 AM CASTING ASSOCIATE documented as of this encounter Plan of Treatment Upcoming Encounters Date Type Department Care Team (Late st Contact Info) Description 06/09/2025 8:00 AM CDT Office Visit [facility] Medical [facility] [place] [address] [place] [address] Mounika Hurtado NP [address] [place] [address] 06/09/2025 8:30 AM CDT Office Visit [facility] [place] [address] [place] [address] Mounika Hurtado NP [address] [facility] [address] [place] [address] documented as of this encounter Visit Diagnoses Not on filedocumented in this encounter Care Teams Pin Machine Operator Relationship Specialty Start Date End Date Mounika Hurtado NP [address] [facility] [address] [place] [address] PCP - General NURSE PRACTITIONER 08/03/24 documented as of this encounter
--- OUTSIDE RECORDS SUMMARY | 2025-05-03 07:18 | XMS_ITS | Encounter Summary ---
Author Organization [facility] Address [facility] [place] [address] Care Team Providers Care Disaster Director Name Role Phone Mounika Huratdo NP Primary Care Provider [phone] Reason for Visit * Reason Onset Date Comments Results 04/01/2025 Bone density Encounter Details Date Type Department Care Team (Late st Contact Info) Description 04/01/2025 [employer] Message Enc [address] [place] [address] [facility] Provider results Social History Tobacco Use Types Packs/Day Years Used Date Smoking Tobacco: Never Passive Smoke Exposure: Never Smokeless Tobacco: Never Alcohol Use Standard Drinks/Week Comments Never 0 (1 standard drink = 0.6 oz pur e alcohol) PHQ-2 Answer Date Recorded Patient Health Questionnaire-2 Score 0 01/28/2025 Comments No Sex and Gender Information Value Date Recorded Sex Assigned at Female 11/09/2024 9:17 AM GROUP COUNSELOR Legal Sex Female 6:38 PM CDT Gender Identity Female 11/09/2024 9:17 AM GROUP COUNSELOR Sexual Orientation Lesbian or Claros 11/09/2024 9: 17 AM GROUP COUNSELOR documented as of this encounter Plan of Treatment Upcoming Encounters Date Type Department Care Team (Late st Contact Info) Description 06/09/2025 8:00 AM CDT Office Visit [place] [address] [facility] [address] [place] [address] Mounika Hurtado, INJECTION MOLDING ENGINEER [address] [place] [address] 06/09/2025 8:30 AM CDT Office Visit [facility] - [place] [address] [place] [address] Mounika Hurtado, INJECTION MOLDING ENGINEER [address] [facility] [address] [place] [address] documented as of this encounter Visit Diagnoses Not on filedocumented in this encounter Care Teams Disaster Director Relationship Specialty Start Date End Date Mounika Hurtado, INJECTION MOLDING ENGINEER [address] [place] [address] PCP - General NURSE PRACTITIONER 08/03/24 documented as of this encounter
--- OUTSIDE RECORDS SUMMARY | 2025-05-03 07:18 | XMS_ITS | Encounter Summary ---
Author Organization [facility] Address [facility] [place] [address] Care Team Providers Care Water Resource Manager Name Role Phone Mounika Hurtado ACCOUNTING TEACHER Primary Care Provider [phone] Encounter Details Date Type Department Care Team (Latest Contact Info) Description 03/17/2025 [employer] Message Enc [facility] Medical [facility] [place] [address] [place] [address] Mounika Hurtado NP [address] [place] [address] Weight loss medication Social History Tobacco Use [...] Sex Assigned at Female 11/09/2024 9:17 AM SERVICE CENTER REPRESENTATIVE Legal Sex Female 6:38 PM CDT Gender Identity Female 11/09/2024 9:17 AM SERVICE CENTER REPRESENTATIVE Sexual Orientation Lesbian or Claros 11/09/2024 9: 17 AM SERVICE CENTER REPRESENTATIVE documented as of this encounter Plan of Treatment Upcoming Encounters Date Type Department Care Team (Late st Contact Info) Description 06/09/2025 8:00 AM CDT Office Visit [facility] Medical [facility] [place] [address] [place] [address] Mounika Hurtado, CALIN [address] [place] [address] 06/09/2025 8:30 AM CDT Office Visit [facility] [place] [address] [place] [address] Mounika Hurtado NP [address] [facility] [address] [place] [address] documented as of this encounter Visit Diagnoses Not on filedocumented in this encounter Care Teams Water Resource Manager Relationship Specialty Start Date End Date Mounika Hurtado NP [address] [facility] [address] [place] [address] PCP - General NURSE PRACTITIONER 08/03/24 documented as of this encounter
--- OUTSIDE RECORDS SUMMARY | 2025-05-03 07:18 | XMS_ITS | Encounter Summary ---
Author Organization [facility] Address [facility] [place] [address] Care Team Providers Care Official Greeter Name Role Phone Mounika Hurtado OIL PROCESS STILLMAN Primary Care Provider [phone] Encounter Details Date Type Department Care Team (Late Contact Info) Description 03/17/2025 [employer] Message Enc [facility] [place] [address] [address] [facility] [address] [place] [address] [place], [facility] Provider [employer] Social History Tobacco Use [...] Sex Assigned at Female 11/09/2024 9:17 AM RADIATOR MECHANIC Legal Sex Female 6:38 PM CDT Gender Identity Female 11/09/2024 9:17 AM RADIATOR MECHANIC Sexual Orientation Lesbian or Claros 11/09/2024 9: 17 AM RADIATOR MECHANIC documented as of this encounter Plan of Treatment Upcoming Encounters Date Type Department Care Team (Late Contact Info) Description 06/09/2025 8:00 AM CDT [facility] [place] [address] [place] [address] Mounika Hurtado NP [address] [facility] [address] [place] [address] 06/09/2025 8:30 AM CDT Office Visit [facility] - [place] [address] [place] [address] Mounika Hurtado, OIL PROCESS STILLMAN [address] [facility] [address] [place] [address] documented as of this encounter Visit Diagnoses Not on filedocumented in this encounter Care Teams Official Greeter Relationship Specialty Start Date End Date Mounika Hurtado NP [address] [facility] [address] [place] [address] PCP - General NURSE PRACTITIONER 08/03/24 documented as of this encounter
--- OUTSIDE RECORDS SUMMARY | 2025-05-03 07:18 | XMS_ITS | Encounter Summary ---
Author Organization [facility] Address [facility] [place] [address] Care Team Providers Care Flaking Roll Operator Name Role Phone Mounika Hurtado REPAIR CLERK Primary Care Provider [phone] Encounter Details Date Type Department Care Team (Latest Contact Info) Description 04/15/2025 [employer] Message Enc [facility] [employer] [address] [place] [address] Mounika Hurtado NP [address] [place] [address] Disposal of Zepbound equipment Social History Tobacco [...] Sex Assigned at Female 11/09/2024 9:17 AM SEWING MACHINE ATTACHMENT TESTER Legal Sex Female 6:38 PM CDT Gender Identity Female 11/09/2024 9:17 AM SEWING MACHINE ATTACHMENT TESTER Sexual Orientation Lesbian or Claros 11/09/2024 9: 17 AM SEWING MACHINE ATTACHMENT TESTER documented as of this encounter Plan of Treatment Upcoming Encounters Date Type Department Care Team (Late st Contact Info) Description 06/09/2025 8:00 AM CDT [facility] [employer] [address] [place] [address] Mounika Hurtado NP [address] [place] [address] 06/09/2025 8:30 AM CDT Office Visit [facility] [place] [employer] [address] [place] [address] Mounika Hurtado NP [address] [facility] [address] [place] [address] documented as of this encounter Visit Diagnoses Not on filedocumented in this encounter Care Teams Flaking Roll Operator Relationship Specialty Start Date End Date Mounika Hurtado NP [address] [place] [address] PCP - General NURSE PRACTITIONER 08/03/24 documented as of this encounter
--- OUTSIDE RECORDS SUMMARY | 2025-05-03 07:19 | XMS_ITS | Encounter Summary ---
Author Organization [facility] Address [facility] [place] [address] Care Team Providers Care Color Checker Name Role Phone Mounika Hurtado JAVA ANALYST Primary Care Provider [phone] Encounter Details Date Type Department Care Team (Latest Contact Info) Description 09/17/2024 [employer] Message Enc [place] [address] [place] [address] Mounika Hurtado, JAVA ANALYST [address] [facility] [address] [place] [address] [employer] 09/17/24 Social History Tobacco Use Types Packs/Day Years Used Date Smoking Tobacco: Never Passive Smoke Exposure: Never Smokeless Tobacco: Never Alcohol Use Standard Drinks/Week Comments Never 0 (1 standard drink = 0.6 oz pur e alcohol) Comments No Sex and Gender Information Value Date Recorded Sex Assigned at Female 11/09/2024 9:17 AM HEALTH POLICY MANAGER Legal Sex Female 6:38 PM CDT Gender Identity Female 11/09/2024 9:17 AM HEALTH POLICY MANAGER Sexual Orientation Lesbian or Claros 11/09/2024 9: 17 AM HEALTH POLICY MANAGER documented as of this encounter Plan of Treatment Upcoming Encounters Date Type Department Care Team (Late st Contact Info) Description 06/09/2025 8:00 AM CDT [facility] [address] [place] [address] Mounika Hurtado, CALIN [address] [place] [address] 06/09/2025 8:30 AM CDT Office Visit [facility] - [place] [address] [place] [address] Mounika Hurtado JAVA ANALYST [address] [facility] [address] [place] [address] documented as of this encounter Visit Diagnoses Not on filedocumented in this encounter Care Teams Color Checker Relationship Specialty Start Date End Date Mounika Hurtado NP [address] [facility] [address] [place] [address] PCP - General NURSE PRACTITIONER 08/03/24 documented as of this encounter
--- OUTSIDE RECORDS SUMMARY | 2025-05-03 07:19 | XMS_ITS | Encounter Summary ---
Author Organization [facility] Address [facility] [place] [address] Care Team Providers Care Business Technology Professor Name Role Phone Mounika Hurtado WEAVE DEFECT CHARTING CLERK Primary Care Provider [phone] Encounter Details Date Type Department Care Team (Latest Contact Info) Description 02/23/[address] [facility] Medical [facility] [address] [place] [address] Mounika Hurtado NP [address] [place] [address] Blood Pressure meds Social History Tobacco Use [...] Sex Assigned at Female 11/09/2024 9:17 AM AND TAXI INSTRUCTOR BUS TROLLEY Legal Sex Female 6:38 PM CDT Gender Identity Female 11/09/2024 9:17 AM AND TAXI INSTRUCTOR BUS TROLLEY Sexual Orientation Lesbian or Claros 11/09/2024 9: 17 AM AND TAXI INSTRUCTOR BUS TROLLEY documented as of this encounter Plan of Treatment Upcoming Encounters Date Type Department Care Team (Late st Contact Info) Description 06/09/2025 8:00 AM CDT Office Visit [facility] [address] [place] [address] GenesisMounika reyes NP [address] [place] [address] 06/09/2025 8:30 AM CDT Office Visit [facility] [place] [address] [place] [address] Mounika Hurtado NP [address] [facility] [address] [place] [address] documented as of this encounter Visit Diagnoses Not on filedocumented in this encounter Care Teams Business Technology Professor Relationship Specialty Start Date End Date Mounika Hurtado NP [address] [facility] [address] [place] [address] PCP - General NURSE PRACTITIONER 08/03/24 documented as of this encounter
--- OUTSIDE RECORDS SUMMARY | 2025-05-03 07:19 | XMS_ITS | Clinical Summary ---
Author Organization [facility] [employer] Address [address] [facility] [place] [address] Care Team Providers Care News Camera Person Name Role Phone Douglas Whalen MD Unavailable [phone] Isabelle Gonzales MD Primary Care Provider [phone] Source Comments [facility] [employer]non-owned Affiliates and Associated Physician Practices is amultiple site organization consisting of ambulatory clinics and hospital sitesin [place], [place], [place] and [place]. This disclosure is being madepursuant to the Care Everywhere program and may not contain all information available regarding this patient. Last updated 18.[facility] [employer] Allergies Active Allergy Reactions Criticality Noted Date Comments Fztkityc-Tshzwruuio-Jlmmfqwy n Unknown 06/05/2018 Penicillins Swelling Medium 10/29/2011 [...] Sex Assigned at Female 09/06/2021 10:31 AM PARTS COUNTER CLERK Legal Sex Female 1:04 PM PARTS COUNTER CLERK Gender Identity Female 09/06/2021 10:31 AM PARTS COUNTER CLERK Sexual Orientation Lesbian 09/06/2021 10 :31 AM PARTS COUNTER CLERK Last Filed Vital Signs Vital Sign Reading Time Taken Comments Blood Pressure 110/79 08/16/2022 9:35 AM PARTS COUNTER CLERK Pulse 71 08/16/2022 9:40 AM PARTS COUNTER CLERK Temperature 36.2 C (97.2 F) 08/16/2022 8:57 AM PARTS COUNTER CLERK Respiratory Rate 21 08/16/2022 9:40 AM PARTS COUNTER CLERK Oxygen Saturation 98% 08/16/2022 9:40 AM PARTS COUNTER CLERK Inhaled Oxygen Concentration - - Weight 87.5 [...] this topic Medical Devices Implanted Type Area Cdl A Driver Device Identifier Shelf Expiration Date Model / Serial / Lot Fertile Sut Swvlck Kntls 4.75mm Fibertape Implanted:Qty: 1 on 08/16/2022 by Talita Andino MD at [facility] Right: Shoulder [employer] 06/29/[id number] / / [id number] Insurance [employer] MEDICARE ADV [facility] MANAGED MEDICARE ADV Advance Directives Documents on File Type Date Recorded Patient Director Power Expl anation Adv Directive/Living Will/POA 12/16/2011 10:10 AM Adv Directive/Living Will/POA 11/15/2011 2:38 PM * FULL RESUSCITATION (Latest Code Status on File) Date Activated Date Inactivated Comments 07/09/2012 11:09 AM 07/12/2012 12:29 PM * FULL RESUSCITATION Date Activated Date Inactivated Comments 12/12/2011 12:01 PM 12/16/2011 1:38 AM Care Teams News Camera Person Relationship Specialty Start Date End Date Isabelle Gonzales MD [address] [place] [address] PCP - General Internal Medicine 07/31/22 Douglas Whalen MD Orthopedic Surgery 12/28/11
--- OUTSIDE RECORDS SUMMARY | 2025-05-03 07:19 | XMS_ITS | Encounter Summary ---
Author Organization [facility] Address [facility] [place] [address] Care Team Providers Care Clinical Education Specialist Name Role Phone Mounika Hurtado OPERATIONAL ASSISTANT Primary Care Provider [phone] Encounter Details Date Type Department Care Team (Late st Contact Info) Description 11/26/2024 [employer] Message Enc [place] [address] [facility] [address] [place] [address] Mounika Hurtado, OPERATIONAL ASSISTANT [address] [facility] [address] [place], [place] [id number] Update Social History Tobacco Use Types Packs/Day Years Used Date Smoking Tobacco: Never Passive Smoke Exposure: Never Smokeless Tobacco: Never Alcohol Use Standard Drinks/Week Comments Never 0 (1 standard drink = 0.6 oz pur e alcohol) Comments No Sex and Gender Information Value Date Recorded Sex Assigned at Female 11/09/2024 9:17 AM AUTO RENTAL CLERK Legal Sex Female 6:38 PM CDT Gender Identity Female 11/09/2024 9:17 AM AUTO RENTAL CLERK Sexual Orientation Lesbian or Claros 11/09/2024 9: 17 AM AUTO RENTAL CLERK documented as of this encounter Plan of Treatment Upcoming Encounters Date Type Department Care Team (Late st Contact Info) Description 06/09/2025 8:00 AM CDT Office Visit [place] [address] [place] [address] Mounika Hurtado, CALIN [address] [facility] [address] [place] [address] 06/09/2025 8:30 AM CDT Office Visit [facility] Medical Group [facility] - [place] [address] [place] [address] Mounika Hurtado, OPERATIONAL ASSISTANT [address] [place] [address] documented as of this encounter Visit Diagnoses Not on filedocumented in this encounter Care Teams Clinical Education Specialist Relationship Specialty Start Date End Date Mounika Hurtado OPERATIONAL ASSISTANT [address] [place] [address] PCP - General NURSE PRACTITIONER 08/03/24 documented as of this encounter
--- OUTSIDE RECORDS SUMMARY | 2025-05-03 07:19 | XMS_ITS | Encounter Summary ---
Author Organization [facility] Address Counts include 234 beds at the [facility] [place] [address] Care Team Providers Care Aerial Installer Name Role Phone Mounika Hurtado SPORTS CARTOONIST Primary Care Provider [phone] Encounter Details Date Type Department Care Team (Latest Contact Info) Description 09/09/2024 [employer] Message Enc [place] [address] [facility] [address] [place] [address] Mounika Hurtado, SPORTS CARTOONIST [address] [facility] [address] [place] [address] Annual Medicare Wellness Visit Social History Tobacco Use Types Packs/Day Years Used Date Smoking Tobacco: Never Passive Smoke Exposure: Never Smokeless Tobacco: Never Alcohol Use Standard Drinks/Week Comments Never 0 (1 standard drink = 0.6 oz pur e alcohol) Comments No Sex and Gender Information Value Date Recorded Sex Assigned at Female 11/09/2024 9:17 AM AUTO TECHNICIAN MECHANIC Legal Sex Female 6:38 PM CDT Gender Identity Female 11/09/2024 9:17 AM AUTO TECHNICIAN MECHANIC Sexual Orientation Lesbian or Claros 11/09/2024 9: 17 AM AUTO TECHNICIAN MECHANIC documented as of this encounter Plan of Treatment Upcoming Encounters Date Type Department Care Team (Late st Contact Info) Description 06/09/2025 8:00 AM CDT [facility] [address] [place] [address] Mounika Hurtado, SPORTS CARTOONIST [address] [facility] [address] [place] [address] 06/09/2025 8:30 AM CDT Office Visit [facility] [place] [address] [place] [address] Mounika Hurtado, CALIN [address] [place] [address] documented as of this encounter Visit Diagnoses Not on filedocumented in this encounter Care Teams Aerial Installer Relationship Specialty Start Date End Date Mounika Hurtado SPORTS CARTOONIST [address] [place] [address] PCP - General NURSE PRACTITIONER 08/03/24 documented as of this encounter
--- OUTSIDE RECORDS SUMMARY | 2025-05-03 07:20 | XMS_ITS | Encounter Summary ---
Author Organization [facility] Address [facility] [place] [address] Care Team Providers Care Registered Nurse Ambulatory Name Role Phone Mounika Hurtado ASSOCIATE QUALITY ENGINEER Primary Care Provider [phone] Encounter Details Date Type Department Care Team (Latest Contact Info) Description 11/09/2024 [employer] Message Enc [facility] [place] [address] [place], [place] [address] Mounika Hurtado, ASSOCIATE QUALITY ENGINEER [address] [place], [place] [id number] No Tamiflu available??? Social History Tobacco Use Types Packs/Day Years Used Date Smoking Tobacco: Never Passive Smoke Exposure: Never Smokeless Tobacco: Never Alcohol Use Standard Drinks/Week Comments Never 0 (1 standard drink = 0.6 oz pur e alcohol) Comments No Sex and Gender Information Value Date Recorded Sex Assigned at Female 11/09/2024 9:17 AM BUILDING COMPONENTS DESIGNER Legal Sex Female 6:38 PM CDT Gender Identity Female 11/09/2024 9:17 AM BUILDING COMPONENTS DESIGNER Sexual Orientation Lesbian or Claros 11/09/2024 9: 17 AM BUILDING COMPONENTS DESIGNER documented as of this encounter Plan of Treatment Upcoming Encounters Date Type Department Care Team (Late st Contact Info) Description 06/09/2025 8:00 AM CDT [facility] [place] [address] [place], [place] [id number] Mounika Hurtado, CALIN [address] [place] [address] 06/09/2025 8:30 AM CDT Office Visit [facility] [place] [address] [place] [address] Mounika Hurtado NP [address] [place] [address] documented as of this encounter Visit Diagnoses Not on filedocumented in this encounter Care Teams Registered Nurse Ambulatory Relationship Specialty Start Date End Date Mounika Hurtado NP [address] [place] [address] PCP - General NURSE PRACTITIONER 08/03/24 documented as of this encounter
--- OUTSIDE RECORDS SUMMARY | 2025-05-03 07:20 | XMS_ITS | Encounter Summary ---
Author Organization [facility] Address [address] [facility] [place] [address] Care Team Providers Care Entry Level Manager Name Role Phone Douglas Whalen MD Unavailable [phone] Isabelle Gonzales MD Primary Care Provider [phone] Encounter Details Date Type Department Care Team (Late st Contact Info) Description 10/23/2019 Lab Requisition [facility] Care DermPath Lab [address] [facility], [place] [address] Sukhdev Hermosillo MD [address] [place] [address] Social History Tobacco Use Types Packs/Day Years Used Date Smoking Tobacco: Never Smokeless Tobacco: Never Alcohol Use Standard Drinks/Week Comments No 0 (1 standard drink = 0.6 oz pur e alcohol) Comments Unknown Sex and Gender Information Value Date Recorded Sex Assigned at Female 09/06/2021 10:31 AM CUFF SETTER LOCKSTITCH Legal Sex Female 1:04 PM CUFF SETTER LOCKSTITCH Gender Identity Female 09/06/2021 10:31 AM CUFF SETTER LOCKSTITCH Sexual Orientation Lesbian 09/06/2021 10 :31 AM CUFF SETTER LOCKSTITCH documented as of this encounter Plan of Treatment Not on file documented as of this encounter Procedures Procedure Name Priority Date/Time Associated Diagnosis Comments DERMATOPATHOLOGY Routine 10/22/2019 12:0 0 AM CUFF SETTER LOCKSTITCH documented in this encounter Results * DERMATOPATHOLOGY (10/22/2019 12:00 AM CUFF SETTER LOCKSTITCH) Case Report Dermatopathology Report Case: [id number] Authorizing Provider: Sukhdev Hermosillo MD Collected: 10/22/2019 12:00 AM Ordering Location: [facility] DermPath Lab Received: 10/23/2019 07:40 AM Pathologist: Iris Hernadez MD Specimen: Skin, dorsal left little finger MCP 0 1:41 PM [facility] DERMATOPATHOLOGY LABORATORY Final Diagnosis Specimen A. 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 0 1:41 PM [facility] DERMATOPATHOLOGY LABORATORY Gross Description Specimen A: Received is one formalin filled container labeled with the patient's name and designated dorsal left little finger MCP. The specimen consists of a shave biopsy (3 pieces) measuring [id number], 1r0w8cw, & 6z6c9br. Jar 0. 0 1:41 PM [facility] DERMATOPATHOLOGY LABORATORY Microscopic Description Specimen A. SKIN, dorsal left little finger MCP: There are lymphocytes around blood vessels and histiocytes between collagen bundles some of which are arranged in a palisade. The collagen is focally altered. 0 1:41 PM [facility] DERMATOPATHOLOGY LABORATORY Disclaimer An external and internal positive and negative controls are appropriate for the histochemical, immunohistochemical and immunofluorescence stain(s) in this case (if any), except where stated explicitly. The performance characteristics of the stain(s) cited in this report were developed and its performance characteristic determined by the Dermatopathology Laboratory at [facility], directed by Dr. Fatou Barba. These tests need not be, and therefore are not, approved by the [place] Food and Drug Administration. The tests are used for clinical purposes. Billing Codes Specimen Charges Stain Charges 97265 1 0 1:41 PM [facility] DERMATOPATHOLOGY LABORATORY Embedded Images 0 1:41 PM [facility] DERMATOPATHOLOGY LABORATORY Pathology/Cytolog y TISSUE SPECIMEN FROM SKIN / Unknown 10/22/2019 10/23/2019 7:40 AM [facility] Sukhdev Hermosillo MD LAB - PATHOLOGY/CYTOLOGY ORD ERABLES Final Result DERMATOPATHOLOGY LABORATORY [facility] - Department of Dermatology [facility] [facility], 5th Floor Lab [address] [phone] documented in this encounter Visit Diagnoses Not on filedocumented in this encounter Care Teams Entry Level Manager Relationship Specialty Start Date End Date Isabelle Gonzales MD [address] [place] [address] PCP - General Internal Medicine 07/31/22 Douglas Whalen MD Orthopedic Surgery 12/28/11 documented as of this encounter
--- OUTSIDE RECORDS SUMMARY | 2025-05-03 07:20 | XMS_ITS | Encounter Summary ---
Author Organization [facility] Address [facility] [place] [address] Care Team Providers Care Retail Representative Name Role Phone Mounika Hurtado PERFORMANCE IMPROVEMENT DIRECTOR Primary Care Provider [phone] Encounter Details Date Type Department Care Team (Latest Contact Info) Description 11/13/2024 [employer] Message Enc [facility] [place] [address] [place], [place] [address] Mounika Hurtado, PERFORMANCE IMPROVEMENT DIRECTOR [address] [place], [place] [id number] Influenza A duration? Social History Tobacco Use Types Packs/Day Years Used Date Smoking Tobacco: Never Passive Smoke Exposure: Never Smokeless Tobacco: Never Alcohol Use Standard Drinks/Week Comments Never 0 (1 standard drink = 0.6 oz pur e alcohol) Comments No Sex and Gender Information Value Date Recorded Sex Assigned at Female 11/09/2024 9:17 AM KILN STACKER Legal Sex Female 6:38 PM CDT Gender Identity Female 11/09/2024 9:17 AM KILN STACKER Sexual Orientation Lesbian or Claros 11/09/2024 9: 17 AM KILN STACKER documented as of this encounter Plan of Treatment Upcoming Encounters Date Type Department Care Team (Late st Contact Info) Description 06/09/2025 8:00 AM CDT [facility] [place] [address] [place], [place] [address] Mounika Hurtado, CALIN [address] [facility] [address] [place] [address] 06/09/2025 8:30 AM CDT Office Visit [facility] Mult[facility]pecialty Care - [place] [address] [place] [address] Mounika Hurtado NP [address] [facility] [address] [place] [address] documented as of this encounter Visit Diagnoses Not on filedocumented in this encounter Care Teams Retail Representative Relationship Specialty Start Date End Date Mounika Hurtado NP [address] [facility] [address] [place] [address] PCP - General NURSE PRACTITIONER 08/03/24 documented as of this encounter
--- OUTSIDE RECORDS SUMMARY | 2025-05-03 07:20 | XMS_ITS | Encounter Summary ---
Author Organization [facility] Address [facility] [place] [address] Care Team Providers Care Leather Tanner Name Role Phone Mounika Hurtado LEAD RUBY ON RAILS DEVELOPER Primary Care Provider [phone] Encounter Details Date Type Department Care Team (Latest Contact Info) Description 10/21/2024 [employer] Message Enc [place] [address] [place] [address] Mounika Hurtado, LEAD RUBY ON RAILS DEVELOPER [address] [facility] [address] [place], [place] [phone] Visit with Dr. Artem Mai Social History Tobacco Use Types Packs/Day Years Used Date Smoking Tobacco: Never Passive Smoke Exposure: Never Smokeless Tobacco: Never Alcohol Use Standard Drinks/Week Comments Never 0 (1 standard drink = 0.6 oz pur e alcohol) Comments No Sex and Gender Information Value Date Recorded Sex Assigned at Female 11/09/2024 9:17 AM RADIO REPAIRER DOMESTIC Legal Sex Female 6:38 PM CDT Gender Identity Female 11/09/2024 9:17 AM RADIO REPAIRER DOMESTIC Sexual Orientation Lesbian or Claros 11/09/2024 9: 17 AM RADIO REPAIRER DOMESTIC documented as of this encounter Plan of Treatment Upcoming Encounters Date Type Department Care Team (Late st Contact Info) Description 06/09/2025 8:00 AM CDT [facility] [address] [place] [address] Mounika Hurtado, CLAIN [address] [facility] [address] [place] [address] 06/09/2025 8:30 AM CDT Office Visit [facility] Mult[facility]pecialty Care - [place] [address] [place] [address] Mounika Hurtado LEAD RUBY ON RAILS DEVELOPER [address] [facility] [address] [place] [address] documented as of this encounter Visit Diagnoses Not on filedocumented in this encounter Care Teams Leather Tanner Relationship Specialty Start Date End Date Mounika Hurtado NP [address] [facility] [address] [place] [address] PCP - General NURSE PRACTITIONER 08/03/24 documented as of this encounter
--- OUTSIDE RECORDS SUMMARY | 2025-05-03 07:20 | XMS_ITS | Clinical Summary ---
Author Organization [facility] Address [address] [place] [address] Phone Care Team Providers Care Service Delivery Analyst Name Role Phone Unavailable Primary Care Provider Unavailabl e Social History Tobacco Use Types Packs/Day Years Used Date Smoking Tobacco: Never Assessed Comments Unknown Sex and Gender Information Value Date Recorded Sex Assigned at Not on file Legal Sex Female 12:09 PM CONTROL VALVE TECHNICIAN Gender Identity Not on file Sexual Orientation Not on file Plan of Treatment Health Maintenance Due Date Last Done Comments DTAP/TDAP/TD VACCINES (1 - Tdap) 1967 PNEUMOCOCCAL VACCINE 50+ YEARS (1 of 1 - PCV) 04/04/19 98 ZOSTER VACCINE (1 of 2) 1998 OSTEOPOROSIS SCREENING 2013 RSV VACCINE (60+ or ) (1 - 1-dose 75+ series) 2023 INFLUENZA VACCINE (#1) 2025 Insurance [facility] [id number]
--- OUTSIDE RECORDS SUMMARY | 2025-05-03 07:21 | XMS_ITS | Clinical Summary ---
Author Organization [facility] Address [address] [place] [address] Care Team Providers Care Inker Name Role Phone Mounika Hurtado BRICK HANDLER Primary Care Provider [phone] Allergies Active Allergy Reactions Criticality Noted Date [...] Care Team Description 04/29/2025 MyChart Message Enc [facility] [address] [facility] [address] [place] [address] Mounika Hurtado, BRICK HANDLER Ordering next round of Zepbound 04/15/2025 MyChart Message Enc [facility] [address] [facility] [address] [place] [address] Mounika Hurtado, BRICK HANDLER Disposal of Zepbound equipment 04/14/2025 2:00 PM CDT [facility] [address] [facility] [address] [place] [address] Mounika Hurtado, BRICK HANDLER Medication Check (Wants to discuss weight loss medication) 04/14/2025 Travel 04/01/2025 MyChart Message [facility] [address] [facility] [address] [place] [address] Amaury, [facility] Provider results 03/30/2025 Telephone [facility] [address] [facility] [address] [place] [address] Mounika Hurtado, BRICK HANDLER Orders 03/17/2025 MyChart Message [facility] [address] [facility] [address] [place] [address] Mounika Hurtado, BRICK HANDLER Weight loss medication 03/17/2025 MyChart Message Enc [facility] [place] [address] [place] [address] Amaury, [facility] Provider Zepbound 02/23/2025 MyChart Message Enc [facility] - [place] [address] [place] [address] Mounika Hurtado, BRICK HANDLER Another thing 02/23/2025 MyChart Message Enc [facility] - [place] [address] [place] [address] Mounika Hurtado, BRICK HANDLER Blood Pressure meds 02/02/2025 Misc Documentation [facility] - [place] [address] [place] [address] Mounika Hurtado, BRICK HANDLER 02/02/2025 MyChart Message Enc [facility] - [place] [address] [place] [address] Mounika Hurtado, BRICK HANDLER Blood Pressure from Last 3 Months Immunizations [...] Comments Arthritis Father Stroke Father Breast cancer ([facility]/HCC [facility]/HCC) Mother lumpectomy Hypertension Mother Relation Status [...] Sex Assigned at Female 11/09/2024 9:17 AM PELLET PREPARATION OPERATOR Legal Sex Female 6:38 PM CDT Gender Identity Female 11/09/2024 9:17 AM PELLET PREPARATION OPERATOR Sexual Orientation Lesbian or Claros 11/09/2024 9: 17 AM PELLET PREPARATION OPERATOR Last Filed Vital Signs Vital Sign [...] Description 06/09/2025 8:00 AM CDT [facility] [place] [address] [place] [address] Mounika Hurtado NP [address] [facility] [address] [place] [address] 06/09/2025 8:30 AM CDT [facility] [place] [address] [place] [address] Mounika Hurtado, BRICK HANDLER [address] [facility] [address] [place] [address] Health Maintenance Due Date Last Done Comments [...] 05/31/2021 Hepatitis C Completed 01/11/2025 PHQ-2 (Physician [place]) Completed 01/28/2025 Dexa Scan (General) Completed 03/30/2025 [...] VE NON-REACT MARIUM 01/11/2025 9:51 PM CDT [facility] Comment: ANTIBODIES TO HCV NOT DETECTED. DOES NOT EXCLUDE THE POSSIBILITY OF EXPOSURE TO HCV. 01/11/2025 11:0 6 AM CDT Mounika Hurtado NP LABORATORY Final Resul t [facility] [address] [place] [address], [place] [phone] [id number] from Last 3 Months or Most Recently Relevant to Health Maintenance Insurance [employer] Care Teams Inker Relationship Specialty Start Date End Date Mounika Hurtado NP [address] [place] [address] PCP - General NURSE PRACTITIONER 08/03/24
--- OUTSIDE RECORDS SUMMARY | 2025-05-03 07:21 | XMS_ITS | Encounter Summary ---
Author Organization [facility] Address [address] [facility] [place] [address] Care Team Providers Care Play Writer Name Role Phone Douglas Whalen MD Unavailable [phone] Isabelle Gonzales MD Primary Care Provider [phone] Encounter Details Date Type Department Care Team (Late st Contact Info) Description 08/09/2021 Lab Requisition [facility] Care DermPath Lab [address] [facility] [place] [address] Sukhdev Hermosillo MD [address] [place] [address] Social History Tobacco Use Types Packs/Day Years Used Date Smoking Tobacco: Never Smokeless Tobacco: Never Alcohol Use Standard Drinks/Week Comments No 0 (1 standard drink = 0.6 oz pur e alcohol) Comments Unknown Sex and Gender Information Value Date Recorded Sex Assigned at Female 09/06/2021 10:31 AM DRAWING CHECKER Legal Sex Female 1:04 PM DRAWING CHECKER Gender Identity Female 09/06/2021 10:31 AM DRAWING CHECKER Sexual Orientation Lesbian 09/06/2021 10 :31 AM DRAWING CHECKER documented as of this encounter Plan of Treatment Not on file documented as of this encounter Procedures Procedure Name Priority Date/Time Associated Diagnosis Comments DERMATOPATHOLOGY Routine 08/08/2021 12:0 0 AM DRAWING CHECKER documented in this encounter Results * DERMATOPATHOLOGY (08/08/2021 12:00 AM DRAWING CHECKER) Case Report Dermatopathology Report Case: [id number] Authorizing Provider: Sukhdev Hermosillo MD Collected: 08/08/2021 12:00 AM Ordering Location: [facility] Derm[facility] Lab Received: 08/09/2021 11:55 AM Pathologist: Bianka Bernstein MD Specimen: Skin, left prox ext FA 11:58 AM [facility] DERMATOPATHOLOGY LABORATORY Final Diagnosis Specimen A. SKIN, left prox ext FA: SQUAMOUS PROLIFERATION (D48.5) (see microscopic description and comment) 11:58 AM [facility] DERMATOPATHOLOGY LABORATORY at [address] [facility] Clinical History R/O KA. 11:58 AM [facility] DERMATOPATHOLOGY LABORATORY Gross Description Specimen A: Received is one formalin filled container labeled with the patient's name and designated left prox ext FA. The specimen consists of a curettage and desiccation biopsy measuring [id number]. Jar 0. 11:58 AM [facility] DERMATOPATHOLOGY LABORATORY Microscopic Description Specimen A. [...] a ruptured follicle or cyst. 11:58 AM [facility] DERMATOPATHOLOGY LABORATORY Disclaimer An external and internal positive and negative controls are appropriate for the histochemical, immunohistochemical and immunofluorescence stain(s) in this case (if any), except where stated explicitly. The performance characteristics of the stain(s) cited in this report were developed and its performance characteristic determined by the Dermatopathology Laboratory at [facility], directed by Dr. Fatou Barba. These tests need not be, and therefore are not, approved by the [place] Food and Drug Administration. The tests are used for clinical purposes. Billing Codes Specimen Charges Stain Charges 18998 1 11:58 AM [facility] DERMATOPATHOLOGY LABORATORY Embedded Images 11:58 AM [facility] DERMATOPATHOLOGY LABORATORY Pathology/Cytolog y TISSUE SPECIMEN FROM SKIN / Unknown 08/08/2021 08/09/2021 11:55 AM DRAWING CHECKER Sukhdev Hermosillo MD LAB - PATHOLOGY/CYTOLOGY ORD ERABLES Final Result DERMATOPATHOLOGY LABORATORY [facility] - Department of Dermatology [facility] Medicine [address] [place] [address], [address] [phone] documented in this encounter Visit Diagnoses Not on filedocumented in this encounter Care Teams Play Writer Relationship Specialty Start Date End Date Isabelle [place] [address] PCP - General Internal Medicine 07/31/22 Douglas Whalen MD Orthopedic Surgery 12/28/11 documented as of this encounter
--- OUTSIDE RECORDS SUMMARY | 2025-05-03 07:21 | XMS_ITS | Encounter Summary ---
Author Organization [facility] Address [facility] [place] [address] Care Team Providers Care Child Welfare Caseworker Name Role Phone Mounika Hurtado SWIMMING COACH Primary Care Provider [phone] Encounter Details Date Type Department Care Team (Latest Contact Info) Description 04/29/2025 [employer] Message Enc [facility] [place] [address] [place] [address] Mounika Hurtado, SWIMMING COACH [address] [place] [address] Ordering next round of Zepbound Social History [...] Sex Assigned at Female 11/09/2024 9:17 AM SALES ASSISTANTS AND SALESPERSONS Legal Sex Female 6:38 PM CDT Gender Identity Female 11/09/2024 9:17 AM SALES ASSISTANTS AND SALESPERSONS Sexual Orientation Lesbian or Claros 11/09/2024 9: 17 AM SALES ASSISTANTS AND SALESPERSONS documented as of this encounter Plan of Treatment Upcoming Encounters Date Type Department Care Team (Late st Contact Info) Description 06/09/2025 8:00 AM CDT [facility] [place] [address] [place] [address] Mounika Hurtado NP [address] [place] [address] 06/09/2025 8:30 AM CDT Office Visit [facility] - [place] [address] [place] [address] Mounika Hurtado NP [address] [facility] [address] [place] [address] documented as of this encounter Visit Diagnoses Not on filedocumented in this encounter Care Teams Child Welfare Caseworker Relationship Specialty Start Date End Date Mounika Hurtado NP [address] [place] [address] PCP - General NURSE PRACTITIONER 08/03/24 documented as of this encounter
--- NOTE | 2025-05-03 08:45 | ED.BACK ---
HPI - Back Pain/Injury General Chief Complaint: Back Pain/Injury Stated Complaint: Right lower back/hip pain Time Seen by Provider: 05/03/25 07:04 Source: patient Mode of arrival: ambulatory Limitations: no limitations History of Present Illness HPI Narrative: 75-year-old with a history of hypertension, hyperlipidemia, hypothyroidism in with complaints of right-sided lower back pain with started 2 days ago she denies trauma or lifting any heavy objects. Denies bladder or bowel incontinence. States the pain radiates down into her right buttock and hip area. Patient stated that she had similar pain 30 years ago was given injections in the lower back. Patient states every time she moves she gets severe pain in the lower back. MD elicited complaint: back pain Pertinent past history: arthritis Onset (ago): day(s) (3) Timing: constant Severity: moderate Quality: sharp and aching Location: lumbar spine Radiation: buttocks (right) Exacerbating factors: movement Relieving factors: sitting upright Associated symptoms: denies other symptoms Related Data Home Medications ?Medication ?Instructions ?Recorded ?Confirmed ?Last Taken ?Type amlodipine 10 mg tablet 10 mg PO DAILY 11/10/19 11/12/19 Unknown History artifi.tears(hypromellose)(PF) 0.3 1 drop ophthalmic (eye) DAILY PRN 11/10/19 11/12/19 Unknown History % eye drops ascorbate calcium (vitamin C) 500 500 mg PO DAILY 11/10/19 11/12/19 Unknown History mg tablet cholecalciferol (vitamin D3) 50 2,000 unit PO DAILY 11/10/19 11/12/19 Unknown History mcg (2,000 unit) capsule (Vitamin D3) clindamycin HCl 150 mg capsule 150 mg PO Q6H 11/10/19 11/12/19 Unknown History diclofenac sodium 1 % gel topical 2 gm topical QID 11/10/19 11/12/19 Unknown History kit esomeprazole magnesium 40 mg 40 mg PO DAILY 11/10/19 11/12/19 Unknown History capsule,delayed release risedronate 150 mg tablet 150 mg PO MONTHLY 11/10/19 11/12/19 Unknown History levothyroxine 125 mcg tablet 132 mcg PO DAILY 11/12/19 11/12/19 Unknown History Allergies Allergy/AdvReac Type Severity Reaction Status Date / Time bacitracin Allergy Unknown Unknown Verified 05/03/25 06:23 neomycin Allergy Unknown BLISTERS Verified 05/03/25 06:23 Penicillins Allergy Unknown Unknown Verified 05/03/25 06:23 polymyxin B Allergy Unknown Unknown Verified 05/03/25 06:23 POLYMYXINBSULF Allergy Unknown BLISTERS Uncoded 01/12/09 12:57 Review of Systems Review of Systems: All systems reviewed & are unremarkable except as noted in HPI and below Constitutional: Constitutional: Reports no additional constitutional complaints Eyes: Eyes: Reports no additional eye complaints ENT: Reports system reviewed and no additional complaints, except as documented Cardiovascular: Cardiovascular: Reports no additional cardiovascular complaints Respiratory: Respiratory: Reports no additional respiratory complaints Gastrointestinal: Gastrointestinal: Reports no additional gastrointestinal complaints Musculoskeletal: Musculoskeletal: Reports as per HPI Integumentary/Breasts: Skin/Breast: Reports system reviewed and no additional complaints, except as docu PMFSH Past Medical History Medical History (Updated 05/03/25 @ 08:51 by Tim Santos MD) Hx gestational diabetes Thyroid disease Hypertension GERD (gastroesophageal reflux disease) Obesity Osteopenia Surgical History Surgical History History of cataract surgery left 07/15/2018 History of cataract surgery right 07/01/18 History of knee replacement procedure of right knee 2011 History of knee replacement procedure of left knee 2012 History of release of tendon right 2004 History of arthroscopy of left knee 2009 History of cholecystectomy 2001 History of appendectomy 195 Family History Family History Father Cerebrovascular accident, Onset Age: 90 Family history of glaucoma, Onset Age: 90 Family history of arthritis, Onset Age: 90 Mother Family history of Parkinson's disease, Onset Age: 90 Family history of obesity, Onset Age: 90 Family history of arthritis, Onset Age: 90 Sibling Family history of malignant neoplasm of breast in first degree relative Grandparent Diabetes mellitus Social History Social History Smoking status: Never smoker Alcohol intake: never Living arrangements: with family Occupation/Education: retired Exam Narrative: GENERAL: Well-appearing, well-nourished, and in no acute distress. HEAD: Normocephalic, atraumatic. EYES: PERRLA and EOMI. ENT: Nares clear, Mucous membranes moist. NECK: Supple. CHEST: Clear to auscultation. No respiratory distress. HEART: Regular rate and rhythm. No murmur heard. Normal peripheral pulses. EXTREMITIES: Normal range of motion. No edema. Back No vertebral point tenderness. No obvious rash noted SKIN: Warm, dry, no rash. NEURO: No focal deficits. Alert and oriented x3. PSYCH: Normal mood and affect. Course Course Emergency Course: Patient was notified about her x-ray and CT findings. Advised her to take pain medication and steroids, follow-up with the primary doctor or pain management. Vital Signs Vital signs: Vital Signs Temperature 36.4 C 05/03/25 06:21 Pulse Rate 70 05/03/25 06:21 Respiratory Rate 18 05/03/25 06:21 Blood Pressure 128/93 H 05/03/25 06:21 Pulse Oximetry 96 05/03/25 06:21 Oxygen Delivery Room Air 05/03/25 06:21 Temperature 36.4 C 05/03/25 06:21 Pulse Rate 94 05/03/25 06:35 Respiratory Rate 19 05/03/25 06:35 Blood Pressure 116/80 05/03/25 06:35 Pulse Oximetry 98 05/03/25 06:35 Oxygen Delivery Room Air 05/03/25 06:21 MDM - Back Pain/Injury Differential Diagnosis Differential diagnosis: Likely lumbar radiculopathy, sciatica, strain of lumbar region and discitis Imaging Data Radiologist's impression: ITS Impressions Hip/Pelvis X-Ray 05/03/25 06:56 Impression: 1: No acute fracture. Lumbar Spine CT 05/03/25 07:17 IMPRESSION: 1. Severe lumbar spondylosis with associated spinal stenosis at L4-5 and L5-S1. 2: Splenic artery aneurysm measuring 1.4 cm, partially calcified. Discharge Plan Discharge Clinical Impression: Lumbar radiculopathy Patient Disposition: Home Condition: Stable Instructions: Antibiotic Form, Lumbar Radiculopathy (ED) Additional Instructions: Continue home medication, take pain medication as prescribed along with steroids. Recommended due to follow-up with your primary doctor consider MRI of the lumbar spine and also pain management for long-term pain control. Patient Language: Lithuanian Prescriptions: New oxycodone-acetaminophen [Percocet] 5-325 mg tablet 1 tablet PO Q6H PRN (Reason: pain) Qty: 14 0RF methylprednisolone [Medrol (Sukhdev)] 4 mg tablets,dose pack See Rx Instructions .ROUTE .COMPLEX Qty: 1 0RF Rx Instructions: orally per package directions No Action amlodipine 10 mg tablet 10 mg PO DAILY clindamycin HCl 150 mg capsule 150 mg PO Q6H diclofenac sodium 1 % kit 2 gm TOPICAL QID Rx Instructions: apply to single elbow, wrist or hand; for hand includes palm/fingers/back of hand esomeprazole magnesium 40 mg capsule,delayed release(DR/EC) 40 mg PO DAILY risedronate 150 mg tablet 150 mg PO MONTHLY Rx Instructions: administer at least 30 minutes before the first food or drink of the day other than water. artifi.tears(hypromellose)(PF) 0.3 % drops 1 drop EACH EYE DAILY PRN ascorbate calcium (vitamin C) 500 mg tablet 500 mg PO DAILY cholecalciferol (vitamin D3) [Vitamin D3] 50 mcg (2,000 unit) capsule 2,000 unit PO DAILY levothyroxine 125 mcg tablet 132 mcg PO DAILY Follow-up/Referrals: Genesis,Mounika Saleem APRN [Primary Care Provider] - Time of Disposition: 08:54
[2025-05-03 09:21] VITALS: BP 128/66; PULSE 61; RESP 16; O2SAT 97
== END 2025-05-03 09:22 | disposition home or self-care (01) ==
PROVIDERS: Emergency Provider Family Medicine; PCP Nurse Practitioner
DX: M54.16 Radiculopathy, lumbar region (principal); I10 Essential (primary) hypertension; K21.9 Gastro-esophageal reflux disease without esophagitis
CPT/HCPCS: 72131; 73502; 99284

== ENCOUNTER 2025-08-02 13:41 | Outpatient (CLI) | payer MEDICARE, SELFPAY ==
--- NOTE | ~2025-08-02 | MM_ITS ---
EXAMINATION: screening [facility] BI w melanie INDICATION: Asymptomatic, referred for screening mammogram COMPARISON: 07/31/2024 through 03/08/2020 TECHNIQUE: Digital Breast Tomosynthesis CC, MLO views of Both breasts were obtained with computer-aided detection to assist in interpretation of the study. FINDINGS: There are scattered areas of fibroglandular density. There is an asymmetry seen on the MLO view in the Superior in the posterior third right breast. There is an asymmetry seen on the MLO view in the retroareolar in the anterior third of the left breast. Elsewhere, there are no mammographic features of malignancy. IMPRESSION: 1. Bilateral breast asymmetries. RECOMMENDATION: Bilateral breast Diagnostic mammogram with true lateral, appropriate spot compression views and an ultrasound if needed. BI-RADS Category 0: Incomplete: Needs additional imaging evaluation. Reviewed, dictated and finalized at location B. IC PATTERN GRADER IMPRESSION: 1. Bilateral breast asymmetries. RECOMMENDATION: Bilateral breast Diagnostic mammogram with true lateral, appropriate spot compr ession views and an ultrasound if needed. BI-RADS Category 0: Incomplete: Needs additional imaging evaluation.
== END 2025-08-02 13:42 | disposition home or self-care (01) ==
LOC: MICIMG 13:42
PROVIDERS: PCP Nurse Practitioner; Visit Provider Nurse Practitioner
DX: Z12.31 Encounter for screening mammogram for malignant neoplasm of breast (principal); R92.8 Other abnormal and inconclusive findings on diagnostic imaging of breast
CPT/HCPCS: 77063; 77067